=== PATIENT | female | born 1945 | race Caucasian/White ===

== ENCOUNTER → 2017-01-01 | Outpatient (CLI) | payer MEDICARE ==
[2017-01-01 10:05] LABS: Blood Urea Nitrogen 18 mg/dL (7-17); Non-African American GFR(MDRD) >60 (>60 ml/min/1.73 sqM)
--- NOTE | 2017-01-01 10:09 | XR ---
EXAMINATION TYPE: XR skull limited DATE OF EXAM: 01/01/2017 COMPARISON: NONE HISTORY: Pre MRI exam. Prior Brain Surgery. TECHNIQUE: Limited 2 views of the skull are performed. FINDINGS: Craniotomy defect right parietal occipital level is noted. There are [address]es in a snowflake shape and single linear fixating plate identified at site of craniotomy. These ty pically do not prevent MRI but could cause artifact and can be assessed at time of scanning. No intra cranial or intraorbital metallic foreign body is clearly identified. IMPRESSION: As above
--- NOTE | 2017-01-01 16:08 | MR ---
EXAMINATION TYPE: MR iac wo/w con DATE OF EXAM: 01/01/2017 COMPARISON: NONE HISTORY: Hearing loss, tinnitus CONTRAST: Performed utilizing 7.5 mL intravenous Gadavist gadolinium contrast. TECHNIQUE: Multiplanar, multiecho imaging on a 3.0 Jennifer magnet is performed through the brain. Atte ntion is paid to the internal auditory canals with thin section imaging. Postcontrast imaging is per formed through the internal auditory canals. Findings: craniovertebral junction is normal. The pituitary is normal. Diffusion-weighted imaging is performed. No suspicious hyperintensity is present to suggest an acute intracranial infarct or acute ischemic area. There is a prior watershed infarct through the posterior parietal and right occipital region. Next va cuo effect is evident. Thin section imaging is performed through the internal auditory canals and cerebellar pontine angles. No cerebellar pontine angle masses are evident. The internal auditory canals appear normal without expansion or erosion. Postcontrast imaging was performed. No suspicious enhancement is evident within the internal audito ry canals or the included portions of the brain. IMPRESSIONS: 1. Normal internal auditory canals. 2. 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 3. Mild periventricular white matter ischemic type changes
== END | disposition home or self-care (01) ==
LOC: RADMRIMAIN 09:15
PROVIDERS: ATTEND Otolaryngology
DX: I67.82 Cerebral ischemia (principal); H91.90 Unspecified hearing loss, unspecified ear; H93.3X9 Disorders of unspecified acoustic nerve; H93.19 Tinnitus, unspecified ear
CPT/HCPCS: 82565; 84520; 70250; 70553; A9581

== ENCOUNTER → 2017-04-15 | Outpatient (CLI) | payer MEDICARE ==
--- NOTE | 2017-04-15 12:30 | PN ---
PROGRESS NOTE FOLLOW UP NOTE: DATE OF SERVICE: 04/15/2017 A 72-year-old lady who has been followed in the Sleep Center for treatment of obstructive sleep apnea-hypopnea syndrome. Patient successfully continued to use her CPAP equipment every night for the whole night. According to , no snoring with the CPAP. [place] Sleepiness Scale is 1. Patient increased her weight around 6 pounds since previous visit. MEDICATIONS: Hydrochlorothiazide, metoprolol, aspirin, ferrous sulfate, lisinopril, atorvastatin, Aricept, vitamin D supplement. PHYSICAL EXAM: Patient in no distress. BP 160/78, HR 56, RR 16, height 5, 1, weight 176, BMI 33.2, temp 96.8, oxygen saturation at room air 98%. OROPHARYNX: Low position of soft palate. ABDOMEN: Obese. Neck Supple, no JVD. Thyroid is not palpable. LUNGS Clear to percussion and to auscultation. Good air exchange. No wheezing or rhonchi. HEART S1, S2 regular. No murmurs, gallops, or rubs. EXTREMITIES No clubbing or cyanosis. HOLD WORKER Awake, alert, and oriented X3. Cranial nerves 2 to 7 intact. There is no fasciculation or atrophy. noted. No focal deficits observed. IMPRESSION: 1. Obstructive sleep apnea-hypopnea syndrome. Patient demonstrated good compliance with treatment benefitting from treatment. CPAP pressure 7 cm of water. 2. Coronary artery disease, status post coronary artery bypass grafting in 2015. 3. Hypertension. 4. Hyperlipidemia. 5. Status post hysterectomy for ovarian tumor in 1999. 6. Status post brain surgery for removing of tumor in 2002. 7. Hyperlipidemia. PLAN: 1. Prescription for all necessary CPAP supplies. 2. Losing weight. 3. Sleep hygiene with regular time in bed for at least 8 hours. 4. No driving if feeling sleepiness. 5. Followup visit in one year or earlier if patient has any problems. Thank you very much for allowing me to participate in the management of patient. Sincerely, Heber Guzman MD, PhD, FAASM Diplomat of [place] [employer] Marshmallow Machine Worker of [facility] [place] MMODL / IJN: [id number] /
== END | disposition home or self-care (01) ==
LOC: SLEEP 10:59
PROVIDERS: ATTEND Internal Medicine
DX: G47.33 Obstructive sleep apnea (adult) (pediatric) (principal); I25.10 Atherosclerotic heart disease of native coronary artery without angina pectoris; I10 Essential (primary) hypertension; E78.5 Hyperlipidemia, unspecified; Z90.710 Acquired absence of both cervix and uterus; Z95.1 Presence of aortocoronary bypass graft; Z79.82 Long term (current) use of aspirin; Z79.899 Other long term (current) drug therapy; Z85.43 Personal history of malignant neoplasm of ovary; Z85.841 Personal history of malignant neoplasm of brain; Z98.890 Other specified postprocedural states; Z99.89 Dependence on other enabling machines and devices

== ENCOUNTER → 2018-05-06 | Outpatient (CLI) | payer MEDICARE ==
--- NOTE | 2018-05-06 14:58 | SFUN ---
SLEEP CENTER FOLLOW UP NOTE DATE OF SERVICE: 05/06/2018 A 73-year-old lady who has been followed in the Sleep Center for treatment of obstructive sleep apnea-hypopnea syndrome. Patient continued to use her CPAP equipment every night for the whole night without problems related to mask fitting, pressure or humidification. [place] Sleepiness Scale today is 9. I checked her CPAP unit. CPAP pressure is 7 cm of water. Usage is 30/30 nights for more than 4 hours. Average usage is 7.7 hours. Leak 10 L/minutes which is normal range. Apnea-hypopnea index only 1.0, which is absolutely perfect. MEDICATIONS: Lisinopril, baby aspirin, hydrochlorothiazide, metoprolol, potassium supplement, atorvastatin, Aricept, , vitamin D supplement. PHYSICAL EXAM: Patient in no distress. No chest pain. No shortness of breath. No headaches. She is not sure that she took her medications today. Blood pressure 204/72 on the left arm. On the right than 210/102, HR 53, RR 16, height 5 foot 1, weight 182.0, body mass index 34.3. Weight is 6 pounds more than during previous visit 2 years ago, temperature 97.8, oxygen saturation at room air 99%. OROPHARYNX: Low position of soft palate. Neck Supple, no JVD. Thyroid is not palpable. LUNGS Clear to percussion and to auscultation. Good air exchange. No wheezing or rhonchi. HEART S1, S2 regular. No murmurs, gallops, or rubs. ABDOMEN Soft and nontender. Bowel sounds are present. No organomegaly appreciated. EXTREMITIES No clubbing or cyanosis. RUNNER WORKER Awake, alert, and oriented X3. Cranial nerves 2 to 7 intact. There is no fasciculation or atrophy. noted. No focal deficits observed. IMPRESSION: 1. Obstructive sleep apnea-hypopnea syndrome. Patient demonstrated 100% compliance with treatment, benefitting from treatment. 2. Hypertension. 3. Coronary artery disease, status post CABG in 2015. 4. Hyperlipidemia. 5. Status post hysterectomy. 6. Status post brain surgery for removing tumor in 2002. 7. Hyperlipidemia. PLAN: 1. Patient will continue to use her CPAP equipment every night for the whole night. 2. Losing weight. 3. Monitoring of blood pressure. If patient will develop any discomfort in the chest, headache or blood pressure will not improve, she should go to emergency room. 4. No driving if feeling sleepiness. 5. Prescription for all necessary CPAP supplies including mask, tube, filters. Thank you very much for allowing me to participate in management of your patient. Sincerely, Heber Guzman MD, PhD, FAASM Diplomat of [employer] Surfboard Designer of [facility] [place] MMODL / IJN: [id number] /
== END ==
LOC: SLEEP 13:28
PROVIDERS: ATTEND Internal Medicine
DX: G47.33 Obstructive sleep apnea (adult) (pediatric) (principal); I10 Essential (primary) hypertension; I25.10 Atherosclerotic heart disease of native coronary artery without angina pectoris; E78.5 Hyperlipidemia, unspecified; Z98.890 Other specified postprocedural states; Z90.710 Acquired absence of both cervix and uterus; Z99.89 Dependence on other enabling machines and devices; Z95.5 Presence of coronary angioplasty implant and graft; Z79.899 Other long term (current) drug therapy; Z79.82 Long term (current) use of aspirin

== ENCOUNTER 2018-05-17 14:30 | Emergency (ER) | payer MEDICARE ==
[2018-05-17 14:44] VITALS: RESP 16; TEMP 98.4
[2018-05-17] MEDS ORDERED: hydrALAZINE HCL 20 MG/ML 1 ML VIAL IVP STA (15:09)
[2018-05-17] MEDS ORDERED: SODIUM CHLORIDE 0.9% 500 ML 500 ML IV ONE (15:09)
--- NOTE | 2018-05-17 15:11 | ED ---
General Adult HPI - General Chief complaint: Recheck/Abnormal Lab/Rx Stated complaint: Hypertension Time Seen by Provider: 05/17/18 15:00 Source: patient, RN notes reviewed, old records reviewed Mode of arrival: ambulatory Limitations: no limitations - History of Present Illness Initial comments: 73-year-old female presents for evaluation of elevated blood pressure. Blood pressures have been running high over the past several weeks. Patient did attempt to call primary care physician this morning who was not available today , it was recommended that the patient presented emergency department with elevated blood pressure. Patient has remote history of brain cancer status post resection. She has history of dementia. History of hypertension. History of coronary artery disease. She is currently on metoprolol, and lisinopril as well as hydrochlorothiazide. Blood pressures have been trending high specifically over the past 3 weeks but her states that they have been high for many months. Patient is asymptomatic. No headache. No vision changes. No focal numbness or weakness. No chest pain. No abdominal pain. No nausea vomiting. - Related Data Home Medications Medication Instructions Recorded Confirmed Donepezil [Aricept] 10 mg PO HS 05/17/18 05/17/18 Ergocalciferol (Vitamin D2) 50,000 unit PO Q7D 05/17/18 05/17/18 [Vitamin D2] Ezetimibe [Zetia] 10 mg PO HS 05/17/18 05/17/18 Hydrochlorothiazide [Hydrodiuril] 25 mg PO DAILY 05/17/18 05/17/18 Lisinopril 40 mg PO DAILY 05/17/18 05/17/18 Metoprolol Succinate (ER) [Toprol 100 mg PO DAILY 05/17/18 05/17/18 Xl] Potassium Chloride ER [K-Dur 20] 20 meq PO DAILY 05/17/18 05/17/18 Vit C/E/Zn/Coppr/Lutein/Zeaxan 1 cap PO BID 05/17/18 05/17/18 [Preservision Areds 2 Softgel] Previous Rx's Medication Instructions Recorded Aspirin 81 mg PO DAILY chew 08/03/14 Atorvastatin [Lipitor] 80 mg PO HS tab 08/03/14 amLODIPine [Norvasc] 2.5 mg PO DAILY #30 tablet 05/17/18 Allergies Allergy/AdvReac Type Severity Reaction Status Date / Time No Known Allergies Allergy Verified 05/17/18 15:16 Review of Systems ROS Statement: Those systems with pertinent positive or pertinent negative responses have been documented in the HPI. ROS Other: All systems not noted in ROS Statement are negative. Past Medical History Past Medical History: Coronary Artery Disease (CAD), Chest Pain / Angina, Hyperlipidemia, Hypertension, Myocardial Infarction (NC), Skin Disorder, Thyroid Disorder Additional Past Medical History / Comment(s): BORAANITAA Last Myocardial Infarction Date:: 1998 History of Any Multi-Drug Resistant Organisms: None Reported Past Surgical History: Heart Catheterization With Stent, Hysterectomy Additional Past Surgical History / Comment(s): STENT X2 1998, BENIGN BRAIN TUMOR REMOVED 2002, BENIGN OVARIAN TUMOR 1999, RAMY CATARACTS REMOVED 2007 Past Anesthesia/Blood Transfusion Reactions: No Reported Reaction Date of Last Stent Placement:: 1998 Past Psychological History: No Psychological Hx Reported Smoking Status: Never smoker Past Alcohol Use History: None Reported Past Drug Use History: None Reported - Past Family History Mother Family Medical History: Congestive Heart Failure (CHF), Coronary Artery Disease (CAD), Hyperlipidemia Father Family Medical History: Asthma, Coronary Artery Disease (CAD) Brother(s) Family Medical History: Coronary Artery Disease (CAD) Additional Family Medical History / Comment(s): Patient had 2 brothers one from, patient's from smoking and one from coronary artery disease. Patient has no sisters. Patient has 2 sons and one has asthma, one daughter that is healthy. General Exam Limitations: no limitations General appearance: alert, in no apparent distress Head exam: Present: atraumatic, normocephalic Eye exam: Present: normal appearance, PERRL ENT exam: Present: normal exam Neck exam: Present: normal inspection. Absent: tenderness, meningismus Respiratory exam: Present: normal lung sounds bilaterally. Absent: respiratory distress, wheezes Cardiovascular Exam: Present: regular rate, normal rhythm GI/Abdominal exam: Present: soft. Absent: distended, tenderness, guarding Extremities exam: Present: normal inspection, normal capillary refill. Absent: pedal edema Neurological exam: Present: alert, CN II-XII intact. Absent: motor sensory deficit Psychiatric exam: Present: normal affect, normal mood Skin exam: Present: warm, dry, intact. Absent: cyanosis, diaphoretic Course Vital Signs 05/17/18 05/17/18 05/17/18 14:41 15:10 16:06 Temperature 98.4 F Pulse Rate 53 L 76 Pulse Rate [ 44 L Left Sitting Pulse Oximetery ] Respiratory 16 16 Rate Blood Pressure 191/84 158/89 O2 Sat by Pulse 100 98 Oximetry EKG Findings - EKG Comments: EKG Findings:: EKG: Sinus bradycardia, voltage criteria for LVH, rate of 48, FL interval 202, QRS duration 96, QTC 434, there is Q-wave and T-wave inversion in inferior leads consistent with previous EKG, no acute ST segment elevation Medical Decision Making - Medical Decision Making Patient presenting with hypertension. She is currently on lisinopril, metoprolol, and hydrochlorothiazide. Patient herself has no complaints, no headache, no focal numbness or weakness, no chest pain, no abdominal pain. Patient was encouraged by the office of her primary care physician because he was unavailable to see the patient. I did give 10 mg of hydralazine in the emergency department with significant improvement in blood pressure. We'll start this patient on Norvasc 5 mg daily. Her will trend blood pressure daily and keep the leg. They have an appointment with a aircraft pneudraulics repairer in 10 days. They're also presented to the primary care physician for evaluation. Return with any worsening or changing symptoms. - Lab Data Result diagrams: 05/17/18 15:25 05/17/18 15:25 Lab Results 05/17/18 05/17/18 05/17/18 Range/Units 15:25 15:25 15:25 WBC 4.6 (3.8-10.6) k/uL RBC 3.81 (3.80-5.40) m/uL Hgb 11.7 (11.4-16.0) gm/dL Hct 36.0 (34.0-46.0) % MCV 94.5 (80.0-100.0) fL MCH 30.8 (25.0-35.0) pg MCHC 32.6 (31.0-37.0) g/dL RDW 14.0 (11.5-15.5) % Plt Count 233 (150-450) k/uL Neutrophils % 75 % Lymphocytes % 10 % Monocytes % 9 % Eosinophils % 3 % Basophils % 1 % Neutrophils # 3.4 (1.3-7.7) k/uL Lymphocytes # 0.4 L (1.0-4.8) k/uL Monocytes # 0.4 (0-1.0) k/uL Eosinophils # 0.1 (0-0.7) k/uL Basophils # 0.0 (0-0.2) k/uL PT (9.0-12.0) sec INR (<1.2) APTT (22.0-30.0) sec Sodium 139 (137-145) mmol/L Potassium 4.7 (3.5-5.1) mmol/L Chloride 105 (98-107) mmol/L Carbon Dioxide 28 (22-30) mmol/L Anion Gap 6 mmol/L BUN 22 H (7-17) mg/dL Creatinine 0.77 (0.52-1.04) mg/dL Est GFR (CKD-EPI)AfAm 89 (>60 ml/min/1.73 sqM) Est GFR (CKD-EPI)NonAf 77 (>60 ml/min/1.73 sqM) Glucose 108 H (74-99) mg/dL Calcium 10.3 H (8.4-10.2) mg/dL Magnesium 2.0 (1.6-2.3) mg/dL Total Bilirubin 0.7 (0.2-1.3) mg/dL AST 32 (14-36) U/L ALT 44 (9-52) U/L Alkaline Phosphatase 120 (38-126) U/L Total Creatine Kinase 131 (30-135) U/L CK-MB (CK-2) 1.0 (0.0-2.4) ng/mL CK-MB (CK-2) Rel Index 0.8 Troponin I <0.012 (0.000-0.034) ng/mL Total Protein 6.9 (6.3-8.2) g/dL Albumin 4.3 (3.5-5.0) g/dL 05/17/18 Range/Units 15:25 WBC (3.8-10.6) k/uL RBC (3.80-5.40) m/uL Hgb (11.4-16.0) gm/dL Hct (34.0-46.0) % MCV (80.0-100.0) fL MCH (25.0-35.0) pg MCHC (31.0-37.0) g/dL RDW (11.5-15.5) % Plt Count (150-450) k/uL Neutrophils % % Lymphocytes % % Monocytes % % Eosinophils % % Basophils % % Neutrophils # (1.3-7.7) k/uL Lymphocytes # (1.0-4.8) k/uL Monocytes # (0-1.0) k/uL Eosinophils # (0-0.7) k/uL Basophils # (0-0.2) k/uL PT 9.8 (9.0-12.0) sec INR 0.9 (<1.2) APTT 22.5 (22.0-30.0) sec Sodium (137-145) mmol/L Potassium (3.5-5.1) mmol/L Chloride (98-107) mmol/L Carbon Dioxide (22-30) mmol/L Anion Gap mmol/L BUN (7-17) mg/dL Creatinine (0.52-1.04) mg/dL Est GFR (CKD-EPI)AfAm (>60 ml/min/1.73 sqM) Est GFR (CKD-EPI)NonAf (>60 ml/min/1.73 sqM) Glucose (74-99) mg/dL Calcium (8.4-10.2) mg/dL Magnesium (1.6-2.3) mg/dL Total Bilirubin (0.2-1.3) mg/dL AST (14-36) U/L ALT (9-52) U/L Alkaline Phosphatase (38-126) U/L Total Creatine Kinase (30-135) U/L CK-MB (CK-2) (0.0-2.4) ng/mL CK-MB (CK-2) Rel Index Troponin I (0.000-0.034) ng/mL Total Protein (6.3-8.2) g/dL Albumin (3.5-5.0) g/dL Disposition Clinical Impression: Asymptomatic hypertension Disposition: HOME SELF-CARE Condition: Fair Instructions (If sedation given, give patient instructions): Hypertension (ED) Prescriptions: amLODIPine [Norvasc] 2.5 mg PO DAILY #30 tablet Is patient prescribed a controlled substance at d/c from ED?: No Referrals: Neptali Arcos MD [Primary Care Provider] - 1-2 days Saman Tipton MD [STAFF PHYSICIAN] - 1-2 days Time of Disposition: 16:16
[2018-05-17 15:50] LABS: Basophils % (A) 1 %; Eosinophils # (A) 0.1 k/uL (0-0.7); Eosinophils % (A) 3 %; HGB 11.7 gm/dL (11.4-16.0); INR 0.9 (<1.2); Lymphocytes # (A) 0.4 k/uL (1.0-4.8); Lymphocytes % (A) 10 %; MCH 30.8 pg (25.0-35.0); MCHC 32.6 g/dL (31.0-37.0); MCV 94.5 fL (80.0-100.0); Mean Platelet Volume 6.9; Monocytes # (A) 0.4 k/uL (0-1.0); Monocytes % (A) 9 %; Neutrophils # (A) 3.4 k/uL (1.3-7.7); Neutrophils % (A) 75 %; Partial Thromboplastin Time 22.5 sec (22.0-30.0); Platelet Count 233 k/uL (150-450); Prothrombin Time 9.8 sec (9.0-12.0); RBC 3.81 m/uL (3.80-5.40); WBC 4.6 k/uL (3.8-10.6)
[2018-05-17 15:53] LABS: Creatine Kinase 131 U/L (30-135)
[2018-05-17 15:55] LABS: Albumin 4.3 g/dL (3.5-5.0); Calcium 10.3 mg/dL (8.4-10.2); Potassium 4.7 mmol/L (3.5-5.1); Total Bilirubin 0.7 mg/dL (0.2-1.3); Total Protein 6.9 g/dL (6.3-8.2)
[2018-05-17 16:06] LABS: Troponin I <0.012 ng/mL (0.000-0.034)
[2018-05-17 16:08] VITALS: BP 158/89; PULSE 76
== END 2018-05-17 16:28 | disposition home or self-care (01) ==
LOC: EC 14:30
DX: I10 Essential (primary) hypertension (principal); E78.5 Hyperlipidemia, unspecified; I25.119 Atherosclerotic heart disease of native coronary artery with unspecified angina pectoris; F03.90 Unspecified dementia, unspecified severity, without behavioral disturbance, psychotic disturbance, mood disturbance, and anxiety; I25.2 Old myocardial infarction; Z79.899 Other long term (current) drug therapy; Z95.5 Presence of coronary angioplasty implant and graft; Z85.841 Personal history of malignant neoplasm of brain; Z98.890 Other specified postprocedural states; Z82.49 Family history of ischemic heart disease and other diseases of the circulatory system
CPT/HCPCS: 36415; 93005; 80053; 82550; 82553; 83735; 84484; 85025; 85610; 85730; 99284; 96374; 96361; J0360

== ENCOUNTER → 2021-02-28 | Outpatient (CLI) | payer MEDICARE ==
--- NOTE | 2021-02-28 18:32 | SFUN ---
SLEEP CENTER FOLLOW UP NOTE DATE OF SERVICE: 02/28/2021 This 76-year-old lady has been followed in Sleep Center for treatment of obstructive sleep apnea-hypopnea syndrome. The patient continues to use her CPAP equipment every night for the whole night. She likes her nasal mask. [place] Sleepiness Scale today is 3, which is totally normal. I checked her CPAP unit. CPAP pressure is 7 cm of water. Usage is 30/30 nights for more than 4 hours with average usage 7.2 hours per night. Leak is 14 L/minute, which is borderline. Apnea-hypopnea index is only 0.7, which is perfect. MEDICATIONS: 1. Lisinopril 40 mg once a day. 2. Aspirin 81 mg once a day. 3. Hydrochlorothiazide 25 mg once a day. 4. Metoprolol 100 mg once a day. 5. Norvasc 2.5 mg once a day. 6. Ferrous sulfate 325 mg once a day. 7. Omeprazole 20 mg once a day. 8. Atorvastatin 80 mg once a day. 9. Donepezil 10 mg once a day. 10. 10 mg once a day. PHYSICAL EXAMINATION: GENERAL APPEARANCE: Pleasant patient in no distress. VITAL SIGNS: BP 159/83, HR 73, RR 18, height 5 feet 1-3/4 inches, weight 188.4 pounds, temperature 97.0, oxygen saturation at room air 96%. HEENT: PERRLA, EOMI, evaluation of oropharynx showed tongue protrudes midline. Low position of soft palate; Mallampati III. NECK: Supple, no JVD. Thyroid is not palpable. LUNGS: Clear to percussion and to auscultation. Good air exchange. No wheezing or rhonchi. HEART: S1, S2 regular. No murmurs, gallops, or rubs. ABDOMEN: Soft and nontender. Bowel sounds are present. No organomegaly appreciated. EXTREMITIES: No clubbing or cyanosis. ENTRY DRIVER OPERATOR: Awake, alert, and oriented X3. Cranial nerves 2 to 7 intact. There is no fasciculation or atrophy. noted. No focal deficits observed. IMPRESSION: 1. Obstructive sleep apnea-hypopnea syndrome. Patient demonstrated great compliance with treatment, benefitting from treatment. 2. Coronary artery disease, status post CABG in 2014. 3. Hypertension. 4. Hyperlipidemia. 5. Status post total hysterectomy in 1999 for ovarian tumor. 6. Status post brain surgery for tumour in 2002. 7. Hyperlipidemia. 8. Status post bilateral cataract surgery in 2007. PLAN: 1. Replace air filter in CPAP unit immediately. It is in bed shape. 2. Patient will continue to use PAP equipment every night for the whole night. 3. Sleep hygiene with regular time in bed for at least 7-1/2 to 8 hours. 4. Precautions related to driving. No driving if feeling sleepiness. 5. I will maintain all necessary prescription for PAP supplies including mask, tube, filters. 6. Watching weight. 7. Follow-up visit in 6 months or earlier if patient has any problems. Thank you very much for allowing me to participate in the management of your patient. Sincerely, Heber Guzman MD, PhD, FAASM Diplomat of [place] [employer] Sleep Medicine Board of [place] [employer] Director [employer] of [facility] [place] MMODL / LUCIEN: [id number] /
== END | disposition home or self-care (01) ==
LOC: SLEEP 16:43
PROVIDERS: ATTEND Internal Medicine
DX: G47.33 Obstructive sleep apnea (adult) (pediatric) (principal); I25.10 Atherosclerotic heart disease of native coronary artery without angina pectoris; I10 Essential (primary) hypertension; E78.5 Hyperlipidemia, unspecified; Z90.79 Acquired absence of other genital organ(s); Z98.890 Other specified postprocedural states

== ENCOUNTER 2021-08-19 20:24 | Observation (INO) | payer MEDICARE ==
--- NOTE | 2021-08-19 21:49 | XR ---
EXAMINATION TYPE: XR chest 2V DATE OF EXAM: 08/19/2021 COMPARISON: 08/01/2014 HISTORY: Difficulty breathing TECHNIQUE: 2 views FINDINGS: Heart is normal. Lungs are clear of consolidation. There are no hilar masses. There are michael rnal wires. Costophrenic angles are clear. Bony thorax appears intact. IMPRESSION: No active cardiopulmonary disease. There is clearing of the pleural fluid and cardiomegal y compared to old exam.
[2021-08-19 22:44] LABS: Partial Thromboplastin Time 23.8 sec (22.0-30.0); Prothrombin Time 10.5 sec (9.0-12.0)
[2021-08-19 22:45] LABS: Anisocytosis Slight; Basophils % (A) 0 %; Eosinophils # (A) 0.1 k/uL (0-0.7); Eosinophils % (A) 1 %; Hypochromasia Slight; Lymphocytes % (A) 14 %; MCH 29.9 pg (25.0-35.0); MCHC 31.8 g/dL (31.0-37.0); MCV 93.8 fL (80.0-100.0); Monocytes # (A) 0.4 k/uL (0-1.0); Monocytes % (A) 6 %; Neutrophils # (A) 5.3 k/uL (1.3-7.7); Neutrophils % (A) 75 %; Platelet Count 344 k/uL (150-450); RBC 1.96 m/uL (3.80-5.40); RDW 17.6 % (11.5-15.5)
[2021-08-19 22:46] LABS: Calcium 9.1 mg/dL (8.4-10.2); Total Bilirubin 0.4 mg/dL (0.2-1.3); Total Protein 6.6 g/dL (6.3-8.2)
[2021-08-19 22:50] LABS: HCT 18.4 % (34.0-46.0); HGB 5.8 gm/dL (11.4-16.0)
--- NOTE | 2021-08-19 23:27 | ED ---
General Adult HPI - General Chief complaint: Shortness of Breath Stated complaint: Shortness of Breath, Heart History Time Seen by Provider: 08/19/21 22:59 Source: patient, family, RN notes reviewed Mode of arrival: ambulatory Limitations: altered mental status - History of Present Illness Initial comments: Patient is a pleasant 76-year-old female presenting to the emergency department with family with concerns for GI bleed. Patient did have an episode prior to arrival. Patient has history of colitis. Patient has been having some shortness of breath for the past several days. Patient appeared to have some discomfort in her chest earlier today. Patient is a very poor historian and history comes from family. - Related Data Home Medications Medication Instructions Recorded Confirmed Donepezil [Aricept] 10 mg PO HS 05/17/18 05/17/18 Ergocalciferol (Vitamin D2) 50,000 unit PO Q7D 05/17/18 05/17/18 [Vitamin D2] Ezetimibe [Zetia] 10 mg PO HS 05/17/18 05/17/18 Metoprolol Succinate (ER) [Toprol 100 mg PO DAILY 05/17/18 05/17/18 Xl] Potassium Chloride ER [K-Dur 20] 20 meq PO DAILY 05/17/18 05/17/18 Vit C/E/Zn/Coppr/Lutein/Zeaxan 1 cap PO BID 05/17/18 05/17/18 [Preservision Areds 2 Softgel] hydroCHLOROthiazide [Hydrodiuril] 25 mg PO DAILY 05/17/18 05/17/18 lisinopriL 40 mg PO DAILY 05/17/18 05/17/18 Previous Rx's Medication Instructions Recorded Aspirin 81 mg PO DAILY chew 08/03/14 Atorvastatin [Lipitor] 80 mg PO HS tab 08/03/14 amLODIPine [Norvasc] 2.5 mg PO DAILY #30 tablet 05/17/18 Allergies Allergy/AdvReac Type Severity Reaction Status Date / Time No Known Allergies Allergy Verified 08/19/21 23:33 Review of Systems ROS Statement: Those systems with pertinent positive or pertinent negative responses have been documented in the HPI. ROS Other: All systems not noted in ROS Statement are negative. Limitations: ROS unobtainable due to patients medical condition Respiratory: Reports: dyspnea Gastrointestinal: Reports: hematochezia Past Medical History Past Medical History: Coronary Artery Disease (CAD), Chest Pain / Angina, Hyperlipidemia, Hypertension, Myocardial Infarction ([place]), Skin Disorder, Thyroid Disorder Additional Past Medical History / Comment(s): TAMARA Last Myocardial Infarction Date:: 1998 History of Any Multi-Drug Resistant Organisms: None Reported Past Surgical History: Coronary Bypass/CABG, Heart Catheterization With Stent, Hysterectomy Additional Past Surgical History / Comment(s): STENT X2 1998, BENIGN BRAIN TUMOR REMOVED 2002, BENIGN OVARIAN TUMOR 1999, RAMY CATARACTS REMOVED 2007 Past Anesthesia/Blood Transfusion Reactions: No Reported Reaction Date of Last Stent Placement:: 1998 Past Psychological History: No Psychological Hx Reported Smoking Status: Never smoker Past Alcohol Use History: None Reported Past Drug Use History: None Reported - Past Family History Mother Family Medical History: Congestive Heart Failure (CHF), Coronary Artery Disease (CAD), Hyperlipidemia Father Family Medical History: Asthma, Coronary Artery Disease (CAD) Brother(s) Family Medical History: Coronary Artery Disease (CAD) Additional Family Medical History / Comment(s): Patient had 2 brothers one from, patient's from smoking and one from coronary artery disease. Patient has no sisters. Patient has 2 sons and one has asthma, one daughter that is healthy. General Exam Limitations: altered mental status General appearance: alert, in no apparent distress Head exam: Present: normocephalic Eye exam: Present: normal appearance Neck exam: Present: normal inspection Respiratory exam: Present: normal lung sounds bilaterally. Absent: chest wall tenderness Cardiovascular Exam: Present: regular rate, normal rhythm GI/Abdominal exam: Present: soft. Absent: distended, tenderness, guarding, rebound, rigid Extremities exam: Present: normal inspection Neurological exam: Present: alert Psychiatric exam: Present: normal affect, normal mood Skin exam: Present: normal color Course Vital Signs 08/19/21 08/19/21 20:27 23:14 Temperature 99.3 F Pulse Rate 100 78 Respiratory 20 20 Rate Blood Pressure 135/62 140/64 O2 Sat by Pulse 100 100 Oximetry EKG Findings - EKG Comments: EKG Findings:: Sinus rhythm rate 74. DE 185. QRS 95. QT 390. QTC 416. Normal axis. Low QRS voltage. No acute ST change. Medical Decision Making - Medical Decision Making Patient and family made aware of results and plan.. Dr. jeffery has been paged for hospital call. Case was discussed with Dr. jeffery, who will admit. - Lab Data Result diagrams: 08/19/21 22:14 08/19/21 22:14 Lab Results 08/19/21 08/19/21 08/19/21 Range/Units 22:14 22:14 22:14 WBC 7.0 (3.8-10.6) k/uL RBC 1.96 L (3.80-5.40) m/uL Hgb 5.8 L* (11.4-16.0) gm/dL Hct 18.4 L* (34.0-46.0) % MCV 93.8 (80.0-100.0) fL MCH 29.9 (25.0-35.0) pg MCHC 31.8 (31.0-37.0) g/dL RDW 17.6 H (11.5-15.5) % Plt Count 344 (150-450) k/uL MPV 8.0 Hypochromasia Slight Anisocytosis Slight PT 10.5 (9.0-12.0) sec INR 1.0 (<1.2) APTT 23.8 (22.0-30.0) sec D-Dimer 0.31 (<0.60) mg/L FEU Sodium 137 (137-145) mmol/L Potassium 5.0 (3.5-5.1) mmol/L Chloride 107 (98-107) mmol/L Carbon Dioxide 18 L (22-30) mmol/L Anion Gap 12 mmol/L BUN 22 H (7-17) mg/dL Creatinine 0.98 (0.52-1.04) mg/dL Est GFR (CKD-EPI)AfAm 65 (>60 ml/min/1.73 sqM) Est GFR (CKD-EPI)NonAf 57 (>60 ml/min/1.73 sqM) Glucose 236 H (74-99) mg/dL Calcium 9.1 (8.4-10.2) mg/dL Total Bilirubin 0.4 (0.2-1.3) mg/dL AST 39 H (14-36) U/L ALT 25 (4-34) U/L Alkaline Phosphatase 122 (38-126) U/L Troponin I (0.000-0.034) ng/mL Total Protein 6.6 (6.3-8.2) g/dL Albumin 4.0 (3.5-5.0) g/dL 08/19/21 Range/Units 22:14 WBC (3.8-10.6) k/uL RBC (3.80-5.40) m/uL Hgb (11.4-16.0) gm/dL Hct (34.0-46.0) % MCV (80.0-100.0) fL MCH (25.0-35.0) pg MCHC (31.0-37.0) g/dL RDW (11.5-15.5) % Plt Count (150-450) k/uL MPV Hypochromasia Anisocytosis PT (9.0-12.0) sec INR (<1.2) APTT (22.0-30.0) sec D-Dimer (<0.60) mg/L FEU Sodium (137-145) mmol/L Potassium (3.5-5.1) mmol/L Chloride (98-107) mmol/L Carbon Dioxide (22-30) mmol/L Anion Gap mmol/L BUN (7-17) mg/dL Creatinine (0.52-1.04) mg/dL Est GFR (CKD-EPI)AfAm (>60 ml/min/1.73 sqM) Est GFR (CKD-EPI)NonAf (>60 ml/min/1.73 sqM) Glucose (74-99) mg/dL Calcium (8.4-10.2) mg/dL Total Bilirubin (0.2-1.3) mg/dL AST (14-36) U/L ALT (4-34) U/L Alkaline Phosphatase (38-126) U/L Troponin I <0.012 (0.000-0.034) ng/mL Total Protein (6.3-8.2) g/dL Albumin (3.5-5.0) g/dL Disposition Clinical Impression: Lower GI hemorrhage Disposition: ADMITTED IP TO THIS HOSP Condition: Serious Is patient prescribed a controlled substance at d/c from ED?: No Referrals: Alisson Calzada [Primary Care Provider] - 1-2 days Time of Disposition: 23:29
[2021-08-19] MEDS ORDERED: PANTOPRAZOLE 40 MG/10 ML VIAL IVP STA (23:29)
[2021-08-19] MEDS ORDERED: NALOXONE 0.4 MG/ML 1 ML VIAL IV PRN (23:31)
[2021-08-19 23:53] LABS: Ovalocytes Present; Poikilocytosis (M) Present; Polychromasia Present
--- NOTE | 2021-08-20 05:04 | P.HPIM ---
History of Present Illness H&P Date: 08/20/21 The patient is a 76-year-old female with a PMH of hypertension, diabetes, hyperlipidemia, and dementia presented to the emergency room with complaints of shortness of breath. History was obtained from the via telephone. The patient is a very poor historian due to underlying dementia. reports that they were out for dinner when he noticed that the patient appeared to be more short of breath than usual. They subsequently brought her to the emergency room. The also reports that over the past 24 hours, the patient has had some bright red blood in her stools, which is unusual for her. The patient herself however denied any active complaints at the time of interview, although he is an unreliable historian due to her significant dementia. Chest x-ray in the emergency room was unremarkable with EKG showing sinus rhythm at 74 bpm with T-wave inversion in leads V1 to V3. Laboratory evaluation was remarkable for hemoglobin of 5.8 down from 11.7 in 2019. Troponin was less than 0.012, with glucose 236. Review of systems: Unable to assess due to mental status Physical examination: General: non toxic, no distress, appears at stated age, obese Derm: no unusual rashes/lesions no unusual ecchymoses, warm, dry Head: atraumatic, normocephalic, symmetric Eyes: EOMI, no lid lag, anicteric sclera, pupils equal round reactive to light ENT: Nose and ears atraumatic, no thrush, no pharyngeal erythema Neck: No thyromegaly, no cervical lymphadenopathy, trachea midline, supple Mouth: no lip lesion, mucus membranes moist Cardiovascular: S1S2 reg, no murmur, positive posterior tibial pulse bilateral, no edema, capillary refill less than 2 seconds Lungs: CTA bilateral, no rhonchi, no rales , no accessory muscle use Abdominal: soft, nontender to palpation, no guarding, no appreciable organomegaly, normal bowel sounds Ext: no gross muscle atrophy, muscle strength 5 out of 5 in all 4 extremities grossly, no contractures, Neuro: CN II-XI grossly intact, light touch intact all 4 extremities, finger to nose within normal limits, Psych: Alert, oriented only to self, not oriented to place or time Assessment/plan Acute blood loss anemia secondary to GI bleeding -1 unit PRBCs ordered -Surgery consulted for colonoscopy/endoscopy -IV fluids -Continue with IV Protonix -Monitor CBC -Nothing by mouth for now Chronic conditions: Type II DM, hypertension, hyperlipidemia, dementia -Continue with home meds -Insulin sliding scale and blood glucose monitoring -Check A1c DVT prophylaxis -IPCDs The patient is admitted with an anticipated greater than 2 midnight stay for evaluation of acute blood loss anemia CODE STATUS: Full Code Discussed with: Patient Anticipated discharge date: 2-[address]: Home Past Medical History Past Medical History: Coronary Artery Disease (CAD), Chest Pain / Angina, Hyperlipidemia, Hypertension, Myocardial Infarction ([place]), Skin Disorder, Thyroid Disorder Additional Past Medical History / Comment(s): BORAMARI Last Myocardial Infarction Date:: 1998 History of Any Multi-Drug Resistant Organisms: None Reported Past Surgical History: Coronary Bypass/CABG, Heart Catheterization With Stent, Hysterectomy Additional Past Surgical History / Comment(s): STENT X2 1998, BENIGN BRAIN TUMOR REMOVED 2002, BENIGN OVARIAN TUMOR 1999, RAMY CATARACTS REMOVED 2007 Past Anesthesia/Blood Transfusion Reactions: No Reported Reaction Date of Last Stent Placement:: 1998 Past Psychological History: No Psychological Hx Reported Smoking Status: Never smoker Past Alcohol Use History: None Reported Past Drug Use History: None Reported - Past Family History Mother Family Medical History: Congestive Heart Failure (CHF), Coronary Artery Disease (CAD), Hyperlipidemia Father Family Medical History: Asthma, Coronary Artery Disease (CAD) Brother(s) Family Medical History: Coronary Artery Disease (CAD) Additional Family Medical History / Comment(s): Patient had 2 brothers one from, patient's from smoking and one from coronary artery disease. Patient has no sisters. Patient has 2 sons and one has asthma, one daughter that is healthy. Medications and Allergies Home Medications Medication Instructions Recorded Confirmed Type Aspirin 81 mg PO DAILY chew 08/03/14 08/19/21 Rx Atorvastatin [Lipitor] 80 mg PO HS tab 08/03/14 08/19/21 Rx Donepezil [Aricept] 10 mg PO HS 05/17/18 08/19/21 History Ergocalciferol (Vitamin D2) 50,000 unit PO WE 05/17/18 08/19/21 History [Vitamin D2] Ezetimibe [Zetia] 10 mg PO HS 05/17/18 08/19/21 History Metoprolol Succinate (ER) [Toprol 100 mg PO DAILY 05/17/18 08/19/21 History Xl] Potassium Chloride ER [K-Dur 20] 20 meq PO DAILY 05/17/18 08/19/21 History Vit C/E/Zn/Coppr/Lutein/Zeaxan 1 cap PO BID 05/17/18 08/19/21 History [Preservision Areds 2 Softgel] hydroCHLOROthiazide [Hydrodiuril] 25 mg PO DAILY 05/17/18 08/19/21 History lisinopriL 40 mg PO DAILY 05/17/18 08/19/21 History Ferrous Sulfate [Feosol] 325 mg PO BID 08/19/21 08/19/21 History Omeprazole [PriLOSEC] 20 mg PO DAILY 08/19/21 08/19/21 History amLODIPine [Norvasc] 5 mg PO DAILY 08/19/21 08/19/21 History metFORMIN HCL 500 mg PO BID 08/19/21 08/19/21 History Allergies Allergy/AdvReac Type Severity Reaction Status Date / Time No Known Allergies Allergy Verified 08/19/21 23:33 Physical Exam Vitals: Vital Signs Temp Pulse Resp BP Pulse Ox 08/20/21 03:11 98.1 F 73 16 127/57 97 08/20/21 02:12 99.0 F 66 16 132/61 94 L 08/20/21 01:42 98.2 F 72 18 117/59 99 08/20/21 01:32 99.2 F 70 16 115/59 100 08/19/21 23:14 78 20 140/64 100 08/19/21 20:27 99.3 F 100 20 135/62 100 Intake and Output 08/19/21 08/19/21 08/20/21 14:59 22:59 06:59 Intake Total 310 Balance 310 Intake: Blood Product 310 Rc As-1 Unit 310 [id number] Other: Weight 83.007 kg Results CBC & Chem 7: 08/19/21 22:14 08/19/21 22:14 Labs: Abnormal Lab Results - Last 24 Hours (Table) 08/19/21 08/19/21 08/19/21 Range/Units 22:14 22:14 23:25 RBC 1.96 L (3.80-5.40) m/uL Hgb 5.8 L* (11.4-16.0) gm/dL Hct 18.4 L* (34.0-46.0) % RDW 17.6 H (11.5-15.5) % Carbon Dioxide 18 L (22-30) mmol/L BUN 22 H (7-17) mg/dL Glucose 236 H (74-99) mg/dL AST 39 H (14-36) U/L Crossmatch See Detail
[2021-08-20 07:33] LABS: Glucose,Whole Blood 167 mg/dL (75-99)
[2021-08-20] MEDS: INSULIN ASPART (NovoLOG) 100 UNIT/ML VIAL SQ SCH ×4 (07:46→21:45)
[2021-08-20 08:52] LABS: Anisocytosis Slight; Basophils % (A) 0 %; Eosinophils # (A) 0.1 k/uL (0-0.7); Eosinophils % (A) 2 %; Hypochromasia Slight; Lymphocytes # (A) 0.9 k/uL (1.0-4.8); Lymphocytes % (A) 16 %; MCH 30.1 pg (25.0-35.0); MCHC 32.1 g/dL (31.0-37.0); MCV 93.8 fL (80.0-100.0); Mean Platelet Volume 7.7; Monocytes # (A) 0.4 k/uL (0-1.0); Monocytes % (A) 6 %; Neutrophils % (A) 72 %; Platelet Count 269 k/uL (150-450); RBC 2.23 m/uL (3.80-5.40); RDW 17.4 % (11.5-15.5); WBC 5.5 k/uL (3.8-10.6)
[2021-08-20 08:55] LABS: HGB 6.7 gm/dL (11.4-16.0)
[2021-08-20 09:07] LABS: Calcium 8.8 mg/dL (8.4-10.2); Potassium 5.2 mmol/L (3.5-5.1)
[2021-08-20] MEDS: METOPROLOL SUCCINATE (ER) 100 MG TAB.ER.24H PO SCH (09:22)
[2021-08-20] MEDS: lisinopriL 20 MG TAB PO SCH (09:22)
[2021-08-20] MEDS: hydroCHLOROthiazide 25 MG TAB PO SCH (09:22)
[2021-08-20] MEDS: PANTOPRAZOLE 40 MG/10 ML VIAL IVP SCH (09:22)
[2021-08-20] MEDS: amLODIPine 5 MG TAB PO SCH (09:22)
--- NOTE | 2021-08-20 11:15 | P.GSCN ---
History of Present Illness Consult date: 08/20/21 History of present illness: CHIEF COMPLAINT: GI bleed HISTORY OF PRESENT ILLNESS: This is a 76-year-old female with a known history of dementia. She presented to the emergency room with complaints of shortness of breath and bright red blood per rectum per the chart. Patient is a poor historian. She was found to have a hemoglobin of 5.8. She has received 1 unit of blood. She also has a history of colitis. Patient denies abdominal pain. Denies any nausea or vomiting. Patient does take iron at home. PAST MEDICAL HISTORY: Coronary Artery Disease (CAD), Chest Pain / Angina, Hyperlipidemia, Hypertension, Myocardial Infarction ([place]), Skin Disorder, Thyroid Disorder PAST SURGICAL HISTORY: Coronary Bypass/CABG, Heart Catheterization With Stent, Hysterectomy, BENIGN BRAIN TUMOR REMOVED 2002, BENIGN OVARIAN TUMOR 1999, RAMY CATARACTS REMOVED 2007 MEDICATIONS: See list. ALLERGIES: See list. SOCIAL HISTORY: No illicit drug use. REVIEW OF SYSTEMS: CONSTITUTIONAL: Denies fever or chills. HEENT: Denies blurred vision, vision changes, or eye pain. Denies hemoptysis CARDIOVASCULAR: Denies chest pain or pressure. RESPIRATORY: No shortness of breath. GASTROINTESTINAL: See HPI for pertinent findings HEMATOLOGIC: Denies bleeding disorders. GENITOURINARY: Denies any blood in urine or increased urinary frequency. SKIN: Denies pruitis. Denies rash. PHYSICAL EXAM: VITAL SIGNS: Reviewed GENERAL: Well-developed in no acute distress. HEENT: No sclera icterus. Extraocular movements grossly intact. Moist buccal mucosa. Head is atraumatic, normocephalic. No nasal drainage. ABDOMEN: Soft. Nondistended. Nontender NEUROLOGIC: Awake and alert. Possibly confused. LABORATORY DATA: WBC is 5.5 hemoglobin 5.8 up to 6.7 platelets 269 Sodium 139 potassium 5.2 creatinine 0.93 IMAGING: ASSESSMENT: 1. Acute GI bleed 2. Acute blood loss anemia secondary to GI bleeding PLAN: -Patient is scheduled for EGD and colonoscopy on 08/22/[address] simms -Start clear liquids -Start GoLYTELY prep tomorrow morning -Continue supportive care -Continue IV fluids -Agree with blood transfusion. Patient receiving another unit of blood -Continue PPI -Continue monitor hemoglobin -Continue to monitor for any signs or symptoms of bleeding Thank you for this consultation Physician Drafter note has been reviewed by physician. Signing provider agrees with the documented findings, assessment, and plan of care. Past Medical History Past Medical History: Coronary Artery Disease (CAD), Chest Pain / Angina, Hyperlipidemia, Hypertension, Myocardial Infarction ([place]), Skin Disorder, Thyroid Disorder Additional Past Medical History / Comment(s): TAMARA Last Myocardial Infarction Date:: 1998 History of Any Multi-Drug Resistant Organisms: None Reported Past Surgical History: Coronary Bypass/CABG, Heart Catheterization With Stent, Hysterectomy Additional Past Surgical History / Comment(s): STENT X2 1998, BENIGN BRAIN TUMOR REMOVED 2002, BENIGN OVARIAN TUMOR 1999, RAMY CATARACTS REMOVED 2007 Past Anesthesia/Blood Transfusion Reactions: No Reported Reaction Date of Last Stent Placement:: 1998 Past Psychological History: No Psychological Hx Reported Smoking Status: Never smoker Past Alcohol Use History: None Reported Past Drug Use History: None Reported - Past Family History Mother Family Medical History: Congestive Heart Failure (CHF), Coronary Artery Disease (CAD), Hyperlipidemia Father Family Medical History: Asthma, Coronary Artery Disease (CAD) Brother(s) Family Medical History: Coronary Artery Disease (CAD) Additional Family Medical History / Comment(s): Patient had 2 brothers one from, patient's from smoking and one from coronary artery disease. Patient has no sisters. Patient has 2 sons and one has asthma, one daughter that is healthy. Medications and Allergies Home Medications Medication Instructions Recorded Confirmed Type Aspirin 81 mg PO DAILY chew 08/03/14 08/19/21 Rx Atorvastatin [Lipitor] 80 mg PO HS tab 08/03/14 08/19/21 Rx Donepezil [Aricept] 10 mg PO HS 05/17/18 08/19/21 History Ergocalciferol (Vitamin D2) 50,000 unit PO WE 05/17/18 08/19/21 History [Vitamin D2] Ezetimibe [Zetia] 10 mg PO HS 05/17/18 08/19/21 History Metoprolol Succinate (ER) [Toprol 100 mg PO DAILY 05/17/18 08/19/21 History Xl] Potassium Chloride ER [K-Dur 20] 20 meq PO DAILY 05/17/18 08/19/21 History Vit C/E/Zn/Coppr/Lutein/Zeaxan 1 cap PO BID 05/17/18 08/19/21 History [Preservision Areds 2 Softgel] hydroCHLOROthiazide [Hydrodiuril] 25 mg PO DAILY 05/17/18 08/19/21 History lisinopriL 40 mg PO DAILY 05/17/18 08/19/21 History Ferrous Sulfate [Feosol] 325 mg PO BID 08/19/21 08/19/21 History Omeprazole [PriLOSEC] 20 mg PO DAILY 08/19/21 08/19/21 History amLODIPine [Norvasc] 5 mg PO DAILY 08/19/21 08/19/21 History metFORMIN HCL 500 mg PO BID 08/19/21 08/19/21 History Allergies Allergy/AdvReac Type Severity Reaction Status Date / Time No Known Allergies Allergy Verified 08/19/21 23:33 Surgical - Exam Vital Signs Temp Pulse Resp BP Pulse Ox 99.3 F 100 20 135/62 100 08/19/21 20:27 08/19/21 20:27 08/19/21 20:27 08/19/21 20:27 08/19/21 20:27 Results - Labs 08/20/21 07:15 08/20/21 07:15 Abnormal Lab Results - Last 24 Hours (Table) 08/19/21 08/19/21 08/19/21 Range/Units 22:14 22:14 23:25 RBC 1.96 L (3.80-5.40) m/uL Hgb 5.8 L* (11.4-16.0) gm/dL Hct 18.4 L* (34.0-46.0) % RDW 17.6 H (11.5-15.5) % Lymphocytes # (1.0-4.8) k/uL Potassium (3.5-5.1) mmol/L Chloride (98-107) mmol/L Carbon Dioxide 18 L (22-30) mmol/L BUN 22 H (7-17) mg/dL Glucose 236 H (74-99) mg/dL POC Glucose (mg/dL) (75-99) mg/dL AST 39 H (14-36) U/L Crossmatch See Detail 08/20/21 08/20/21 08/20/21 Range/Units 07:15 07:15 07:31 RBC 2.23 L (3.80-5.40) m/uL Hgb 6.7 L* (11.4-16.0) gm/dL Hct 21.0 L (34.0-46.0) % RDW 17.4 H (11.5-15.5) % Lymphocytes # 0.9 L (1.0-4.8) k/uL Potassium 5.2 H (3.5-5.1) mmol/L Chloride 108 H (98-107) mmol/L Carbon Dioxide (22-30) mmol/L BUN 19 H (7-17) mg/dL Glucose 143 H (74-99) mg/dL POC Glucose (mg/dL) 167 H (75-99) mg/dL AST (14-36) U/L Crossmatch Diabetes panel 08/19/21 08/20/21 Range/Units 22:14 07:15 Sodium 137 139 (137-145) mmol/L Potassium 5.0 5.2 H (3.5-5.1) mmol/L Chloride 107 108 H (98-107) mmol/L Carbon Dioxide 18 L 22 (22-30) mmol/L BUN 22 H 19 H (7-17) mg/dL Creatinine 0.98 0.93 (0.52-1.04) mg/dL Glucose 236 H 143 H (74-99) mg/dL Calcium 9.1 8.8 (8.4-10.2) mg/dL AST 39 H (14-36) U/L ALT 25 (4-34) U/L Alkaline Phosphatase 122 (38-126) U/L Total Protein 6.6 (6.3-8.2) g/dL Albumin 4.0 (3.5-5.0) g/dL Calcium panel 08/19/21 08/20/21 Range/Units 22:14 07:15 Calcium 9.1 8.8 (8.4-10.2) mg/dL Albumin 4.0 (3.5-5.0) g/dL Pituitary panel 08/19/21 08/20/21 Range/Units 22:14 07:15 Sodium 137 139 (137-145) mmol/L Potassium 5.0 5.2 H (3.5-5.1) mmol/L Chloride 107 108 H (98-107) mmol/L Carbon Dioxide 18 L 22 (22-30) mmol/L BUN 22 H 19 H (7-17) mg/dL Creatinine 0.98 0.93 (0.52-1.04) mg/dL Glucose 236 H 143 H (74-99) mg/dL Calcium 9.1 8.8 (8.4-10.2) mg/dL Adrenal panel 08/19/21 08/20/21 Range/Units 22:14 07:15 Sodium 137 139 (137-145) mmol/L Potassium 5.0 5.2 H (3.5-5.1) mmol/L Chloride 107 108 H (98-107) mmol/L Carbon Dioxide 18 L 22 (22-30) mmol/L BUN 22 H 19 H (7-17) mg/dL Creatinine 0.98 0.93 (0.52-1.04) mg/dL Glucose 236 H 143 H (74-99) mg/dL Calcium 9.1 8.8 (8.4-10.2) mg/dL Total Bilirubin 0.4 (0.2-1.3) mg/dL AST 39 H (14-36) U/L ALT 25 (4-34) U/L Alkaline Phosphatase 122 (38-126) U/L Total Protein 6.6 (6.3-8.2) g/dL Albumin 4.0 (3.5-5.0) g/dL
--- NOTE | 2021-08-20 12:56 | P.PN ---
Subjective Progress Note Date: 08/20/21 Objective - Vital Signs Vital signs: Vital Signs Temp 98 F 08/20/21 12:52 Pulse 61 08/20/21 12:52 Resp 16 08/20/21 12:52 BP 118/64 08/20/21 12:52 Pulse Ox 97 08/20/21 12:52 Intake & Output 08/19/21 08/20/21 08/20/21 18:59 06:59 18:59 Intake Total 310 310 Balance 310 310 Weight 83.007 kg Intake: Blood Product 310 310 Rc As-1 Unit 310 [id number] Rc As-1 Unit 310 [id number] - Labs CBC & Chem 7: 08/20/21 07:15 08/20/21 07:15 Labs: Abnormal Lab Results - Last 24 Hours (Table) 08/19/21 08/19/21 08/19/21 Range/Units 22:14 22:14 23:25 RBC 1.96 L (3.80-5.40) m/uL Hgb 5.8 L* (11.4-16.0) gm/dL Hct 18.4 L* (34.0-46.0) % RDW 17.6 H (11.5-15.5) % Lymphocytes # (1.0-4.8) k/uL Potassium (3.5-5.1) mmol/L Chloride (98-107) mmol/L Carbon Dioxide 18 L (22-30) mmol/L BUN 22 H (7-17) mg/dL Glucose 236 H (74-99) mg/dL POC Glucose (mg/dL) (75-99) mg/dL Hemoglobin A1c (0.0-6.0) % AST 39 H (14-36) U/L Crossmatch See Detail 08/20/21 08/20/21 08/20/21 Range/Units 07:15 07:15 07:15 RBC 2.23 L (3.80-5.40) m/uL Hgb 6.7 L* (11.4-16.0) gm/dL Hct 21.0 L (34.0-46.0) % RDW 17.4 H (11.5-15.5) % Lymphocytes # 0.9 L (1.0-4.8) k/uL Potassium 5.2 H (3.5-5.1) mmol/L Chloride 108 H (98-107) mmol/L Carbon Dioxide (22-30) mmol/L BUN 19 H (7-17) mg/dL Glucose 143 H (74-99) mg/dL POC Glucose (mg/dL) (75-99) mg/dL Hemoglobin A1c 7.2 H (0.0-6.0) % AST (14-36) U/L Crossmatch 08/20/21 Range/Units 07:31 RBC (3.80-5.40) m/uL Hgb (11.4-16.0) gm/dL Hct (34.0-46.0) % RDW (11.5-15.5) % Lymphocytes # (1.0-4.8) k/uL Potassium (3.5-5.1) mmol/L Chloride (98-107) mmol/L Carbon Dioxide (22-30) mmol/L BUN (7-17) mg/dL Glucose (74-99) mg/dL POC Glucose (mg/dL) 167 H (75-99) mg/dL Hemoglobin A1c (0.0-6.0) % AST (14-36) U/L Crossmatch
--- NOTE | 2021-08-20 13:31 | P.PN ---
Subjective Progress Note Date: 08/20/21 The patient is a 76-year-old female with a PMH of hypertension, diabetes, hyperlipidemia, and dementia presented to the emergency room with complaints of shortness of breath. History was obtained from the via telephone. The patient is a very poor historian due to underlying dementia. reports that they were out for dinner when he noticed that the patient appeared to be more short of breath than usual. They subsequently brought her to the emergency room. The also reports that over the past 24 hours, the patient has had some bright red blood in her stools, which is unusual for her. The patient herself however denied any active complaints at the time of interview, although he is an unreliable historian due to her significant dementia. Chest x-ray in the emergency room was unremarkable with EKG showing sinus rhythm at 74 bpm with T-wave inversion in leads V1 to V3. Laboratory evaluation was remarkable for hemoglobin of 5.8 down from 11.7 in 2019. Troponin was less than 0.012, with glucose 236. 08/20: Patient is seen this morning in the emergency center waiting from bed on the [facility] floor. Her nurse states that she has not had any bloody stools today but did have some yesterday. She is status post transfusion 1 unit of packed RBC and repeat blood work is pending. Patient denies having any nausea or vomiting. Patient's been afebrile, heart rate in the 60s, blood pressure 118/64, pulse ox 97% on room air. Capillary blood glucose 167. Patient to be seen today by general surgery and anticipate EGD and possible colonoscopy. Review Of Systems: Constitutional: No fever, no chills, no night sweats. No weight change. No weakness, fatigue or lethargy. No daytime sleepiness. EENT: No headache. No blurred vision or double vision, no loss of vision. No loss of Hearing, no ringing in the ears, no dizziness. No nasal drainage or congestion. No epistaxis. No sore throat. Lungs: No shortness of breath, cough, no sputum production. No wheezing. Cardiovascular: No chest pain, no lower extremity edema. No palpitations. No paroxysmal nocturnal dyspnea. No orthopnea. No lightheadedness or dizziness. No syncopal episodes. Abdominal: No abdominal pain. No nausea, vomiting. No diarrhea. No constipation. Reported bloody or tarry stools reported loss of appetite. Genitourinary: No dysuria, increased frequency, urgency. No urinary retention. Musculoskeletal: No myalgias. No muscle weakness, no gait dysfunction, no frequent falls. No back pain. No neck pain. Integumentary: No wounds, no lesions. No rash or pruritus. No unusual bruising. No change in hair or nails. Neurologic: No aphasia. No facial droop. Chronic change in mentation due to underlying dementia. No head injury. No headache. No paralysis. No paresthesia. Psychiatric: No depression. No anxiety. No mood swings. Endocrine: No abnormal blood sugars. No weight change. No excessive sweating or thirst. No cold intolerance. Physical examination: General: This is a 76-year-old female. She is sitting on the ER stretch and appears to be comfortable in no acute distress. Derm: no unusual rashes/lesions no unusual ecchymoses, warm, dry Head: atraumatic, normocephalic, symmetric Eyes: EOMI, no lid lag, anicteric sclera, pupils equal round reactive to light ENT: Nose and ears atraumatic, no thrush, no pharyngeal erythema Neck: No thyromegaly, no cervical lymphadenopathy, trachea midline, supple Mouth: no lip lesion, mucus membranes moist Cardiovascular: S1S2 reg, no murmur, positive posterior tibial pulse bilateral, no edema, capillary refill less than 2 seconds Lungs: CTA bilateral, no rhonchi, no rales , no accessory muscle use Abdominal: soft, nontender to palpation, no guarding, no appreciable organomegaly, normal bowel sounds Ext: no gross muscle atrophy, muscle strength 5 out of 5 in all 4 extremities grossly, no contractures Neuro: CN II-XI grossly intact, light touch intact all 4 extremities Psych: Alert, oriented only to self, not oriented to place or time Assessment/plan Acute blood loss anemia secondary to acute GI bleeding - status post transfusion of 1 unit of packed RBCs -Surgery consulted for colonoscopy/endoscopy -IV fluids -Continue with IV Protonix -Monitor CBC -Nothing by mouth for now Hypertension. Continue lisinopril 40 mg daily, Toprol-XL 100 mg daily, amlodipine 5 mg daily. Hyperlipidemia. Continue atorvastatin 80 mg at bedtime. Diabetes mellitus type 2. Continue NovoLog scale before meals and at bedtime. A1c 7.2. DVT prophylaxis -IPCDs CODE STATUS: Full Code DISCHARGE PLAN Home most likely Impression and plan of care have been directed as dictated by the signing physician. Desi Holden nurse practitioner acting as scribe for signing physician. Objective - Vital Signs Vital signs: Vital Signs Temp 98.1 F 08/20/21 03:11 Pulse 64 08/20/21 05:59 Resp 18 08/20/21 05:59 BP 128/82 08/20/21 05:59 Pulse Ox 98 08/20/21 05:59 Intake & Output 08/19/21 08/20/21 08/20/21 18:59 06:59 18:59 Intake Total 310 Balance 310 Weight 83.007 kg Intake: Blood Product 310 Rc As-1 Unit 310 [id number] - Labs CBC & Chem 7: 08/20/21 07:15 08/20/21 07:15 Labs: Abnormal Lab Results - Last 24 Hours (Table) 08/19/21 08/19/21 08/19/21 Range/Units 22:14 22:14 23:25 RBC 1.96 L (3.80-5.40) m/uL Hgb 5.8 L* (11.4-16.0) gm/dL Hct 18.4 L* (34.0-46.0) % RDW 17.6 H (11.5-15.5) % Carbon Dioxide 18 L (22-30) mmol/L BUN 22 H (7-17) mg/dL Glucose 236 H (74-99) mg/dL POC Glucose (mg/dL) (75-99) mg/dL AST 39 H (14-36) U/L Crossmatch See Detail 08/20/21 Range/Units 07:31 RBC (3.80-5.40) m/uL Hgb (11.4-16.0) gm/dL Hct (34.0-46.0) % RDW (11.5-15.5) % Carbon Dioxide (22-30) mmol/L BUN (7-17) mg/dL Glucose (74-99) mg/dL POC Glucose (mg/dL) 167 H (75-99) mg/dL AST (14-36) U/L Crossmatch
[2021-08-20 14:06] LABS: Glucose,Whole Blood 137 mg/dL (75-99)
[2021-08-20] MEDS: SODIUM CHLORIDE 0.9% 1,000 ML IV SCH ×2 (14:47→14:48)
[2021-08-20 16:30] LABS: Anisocytosis Slight; HCT 24.3 % (34.0-46.0); HGB 7.9 gm/dL (11.4-16.0); Hypochromasia Slight; MCH 30.9 pg (25.0-35.0); MCHC 32.6 g/dL (31.0-37.0); MCV 94.8 fL (80.0-100.0); Platelet Count 208 k/uL (150-450); RBC 2.57 m/uL (3.80-5.40); RDW 16.5 % (11.5-15.5); WBC 5.6 k/uL (3.8-10.6)
[2021-08-20 18:31] LABS: Glucose,Whole Blood 192 mg/dL (75-99)
[2021-08-20 20:51] LABS: Glucose,Whole Blood 176 mg/dL (75-99)
[2021-08-20] MEDS: DONEPEZIL 10 MG TAB PO SCH (21:45)
[2021-08-20] MEDS: ATORVASTATIN 80 MG TAB PO SCH (21:45)
[2021-08-21] MEDS: SODIUM CHLORIDE 0.9% 1,000 ML IV SCH ×3 (01:30→22:50)
[2021-08-21] MEDS: INSULIN ASPART (NovoLOG) 100 UNIT/ML VIAL SQ SCH ×4 (06:20→20:41)
[2021-08-21 06:21] LABS: Glucose,Whole Blood 134 mg/dL (75-99)
[2021-08-21 07:53] LABS: Anisocytosis Slight; HGB 8.9 gm/dL (11.4-16.0); Hypochromasia Slight; MCH 31.5 pg (25.0-35.0); MCHC 33.1 g/dL (31.0-37.0); MCV 95.3 fL (80.0-100.0); Mean Platelet Volume 8.4; Platelet Count 243 k/uL (150-450); Poikilocytosis Slight; RBC 2.83 m/uL (3.80-5.40); RDW 16.8 % (11.5-15.5); WBC 5.8 k/uL (3.8-10.6)
[2021-08-21 08:11] LABS: African American GFR (CKD) >90 (>60 ml/min/1.73 sqM); Anion Gap 8 mmol/L; Blood Urea Nitrogen 10 mg/dL (7-17); Calcium 9.2 mg/dL (8.4-10.2); Carbon Dioxide 24 mmol/L (22-30); Chloride 108 mmol/L (98-107); Glucose 143 mg/dL (74-99); Non-African American GFR(CKD) 80 (>60 ml/min/1.73 sqM); Potassium 4.3 mmol/L (3.5-5.1); Sodium 140 mmol/L (137-145)
[2021-08-21] MEDS: PANTOPRAZOLE 40 MG/10 ML VIAL IVP SCH (08:43)
[2021-08-21] MEDS: METOPROLOL SUCCINATE (ER) 100 MG TAB.ER.24H PO SCH (08:44)
[2021-08-21] MEDS: lisinopriL 20 MG TAB PO SCH (08:44)
[2021-08-21] MEDS: amLODIPine 5 MG TAB PO SCH (08:44)
[2021-08-21] MEDS: hydroCHLOROthiazide 25 MG TAB PO SCH (08:44)
[2021-08-21] MEDS ORDERED: PEG 3350-NA SULF,BICARB,CL/KCL 4,000 ML BOTTLE PO ONE (09:00)
[2021-08-21 11:49] LABS: Glucose,Whole Blood 221 mg/dL (75-99)
--- NOTE | 2021-08-21 12:33 | P.PN ---
Subjective Progress Note Date: 08/21/21 The patient is a 76-year-old female with a PMH of hypertension, diabetes, hyperlipidemia, and dementia presented to the emergency room with complaints of shortness of breath. History was obtained from the via telephone. The patient is a very poor historian due to underlying dementia. reports that they were out for dinner when he noticed that the patient appeared to be more short of breath than usual. They subsequently brought her to the emergency room. The also reports that over the past 24 hours, the patient has had some bright red blood in her stools, which is unusual for her. The patient herself however denied any active complaints at the time of interview, although he is an unreliable historian due to her significant dementia. Chest x-ray in the emergency room was unremarkable with EKG showing sinus rhythm at 74 bpm with T-wave inversion in leads V1 to V3. Laboratory evaluation was remarkable for hemoglobin of 5.8 down from 11.7 in 2019. Troponin was less than 0.012, with glucose 236. 08/20: Patient is seen this morning in the emergency center waiting from bed on the [facility] floor. Her nurse states that she has not had any bloody stools today but did have some yesterday. She is status post transfusion 1 unit of packed RBC and repeat blood work is pending. Patient denies having any nausea or vomiting. Patient's been afebrile, heart rate in the 60s, blood pressure 118/64, pulse ox 97% on room air. Capillary blood glucose 167. Patient to be seen today by general surgery and anticipate EGD and possible colonoscopy. 08/21: Patient is seen today on the cardiac stepdown unit. Repeat hemoglobin and she is status post transfusion of 2 units of packed RBCs. Capillary blood glucose running between 134 and 221. Patient is refusing insulin so we will start the patient on Tradjenta. Patient has been seen by general surgery and is scheduled for EGD and colonoscopy tomorrow. Review Of Systems: Constitutional: No fever, no chills, no night sweats. No weight change. No weakness, fatigue or lethargy. No daytime sleepiness. EENT: No headache. No blurred vision or double vision, no loss of vision. No loss of Hearing, no ringing in the ears, no dizziness. No nasal drainage or congestion. No epistaxis. No sore throat. Lungs: No shortness of breath, cough, no sputum production. No wheezing. Cardiovascular: No chest pain, no lower extremity edema. No palpitations. No paroxysmal nocturnal dyspnea. No orthopnea. No lightheadedness or dizziness. No syncopal episodes. Abdominal: No abdominal pain. No nausea, vomiting. No diarrhea. No constipation. Reported bloody or tarry stools reported loss of appetite. Genitourinary: No dysuria, increased frequency, urgency. No urinary retention. Musculoskeletal: No myalgias. No muscle weakness, no gait dysfunction, no frequent falls. No back pain. No neck pain. Integumentary: No wounds, no lesions. No rash or pruritus. No unusual bruising. No change in hair or nails. Neurologic: No aphasia. No facial droop. Chronic change in mentation due to underlying dementia. No head injury. No headache. No paralysis. No paresthesia. Psychiatric: No depression. No anxiety. No mood swings. Endocrine: No abnormal blood sugars. No weight change. No excessive sweating or thirst. No cold intolerance. Physical examination: General: This is a 76-year-old female. She is sitting on the edge of her bed and appears to be comfortable in no acute distress. Derm: no unusual rashes/lesions no unusual ecchymoses, warm, dry Head: atraumatic, normocephalic, symmetric Eyes: EOMI, no lid lag, anicteric sclera, pupils equal round reactive to light ENT: Nose and ears atraumatic, no thrush, no pharyngeal erythema Neck: No thyromegaly, no cervical lymphadenopathy, trachea midline, supple Mouth: no lip lesion, mucus membranes moist Cardiovascular: S1S2 reg, no murmur, positive posterior tibial pulse bilateral, no edema, capillary refill less than 2 seconds Lungs: CTA bilateral, no rhonchi, no rales , no accessory muscle use Abdominal: soft, nontender to palpation, no guarding, no appreciable organomegaly, normal bowel sounds Ext: no gross muscle atrophy, muscle strength 5 out of 5 in all 4 extremities grossly, no contractures Neuro: CN II-XI grossly intact, light touch intact all 4 extremities Psych: Alert, oriented only to self, not oriented to place or time Assessment/plan Acute blood loss anemia secondary to acute GI bleeding - status post transfusion of 2 unit of packed RBCs -Surgery consulted for EGD and colonoscopy scheduled for 08/22 -IV fluids -Continue with IV Protonix -Monitor CBC Hypertension. Continue lisinopril 40 mg daily, Toprol-XL 100 mg daily, amlodipine 5 mg daily. Hyperlipidemia. Continue atorvastatin 80 mg at bedtime. Diabetes mellitus type 2. Continue NovoLog scale before meals and at bedtime. A1c 7.2. DVT prophylaxis -IPCDs CODE STATUS: Full Code DISCHARGE PLAN Home most likely Impression and plan of care have been directed as dictated by the signing physician. Desi Holden nurse practitioner acting as scribe for signing physician. Objective - Vital Signs Vital signs: Vital Signs Temp 98.1 F 08/21/21 07:46 Pulse 61 08/21/21 08:00 Resp 18 08/21/21 08:00 BP 139/71 08/21/21 07:46 Pulse Ox 99 08/21/21 07:46 Intake & Output 08/20/21 08/21/21 08/21/21 18:59 06:59 18:59 Intake Total 310 240 Output Total 200 Balance 310 240 -200 Weight 83.007 kg Intake: Oral 240 Blood Product 310 Rc As-1 Unit 310 [id number] Output: Urine 200 Other: Voiding Method Toilet # Voids 1 # Bowel Movements 1 - Labs CBC & Chem 7: 08/21/21 07:41 08/21/21 07:41 Labs: Abnormal Lab Results - Last 24 Hours (Table) 08/19/21 08/20/21 08/20/21 Range/Units 23:25 07:15 14:04 RBC (3.80-5.40) m/uL Hgb (11.4-16.0) gm/dL Hct (34.0-46.0) % RDW (11.5-15.5) % Chloride (98-107) mmol/L Glucose (74-99) mg/dL POC Glucose (mg/dL) 137 H (75-99) mg/dL Hemoglobin A1c 7.2 H (0.0-6.0) % Crossmatch See Detail 08/20/21 08/20/21 08/20/21 Range/Units 16:02 18:29 20:50 RBC 2.57 L (3.80-5.40) m/uL Hgb 7.9 L (11.4-16.0) gm/dL Hct 24.3 L (34.0-46.0) % RDW 16.5 H (11.5-15.5) % Chloride (98-107) mmol/L Glucose (74-99) mg/dL POC Glucose (mg/dL) 192 H 176 H (75-99) mg/dL Hemoglobin A1c (0.0-6.0) % Crossmatch 08/21/21 08/21/21 08/21/21 Range/Units 06:19 07:41 07:41 RBC 2.83 L (3.80-5.40) m/uL Hgb 8.9 L (11.4-16.0) gm/dL Hct 27.0 L (34.0-46.0) % RDW 16.8 H (11.5-15.5) % Chloride 108 H (98-107) mmol/L Glucose 143 H (74-99) mg/dL POC Glucose (mg/dL) 134 H (75-99) mg/dL Hemoglobin A1c (0.0-6.0) % Crossmatch
--- NOTE | 2021-08-21 12:45 | P.PN ---
Subjective Progress Note Date: 08/21/21 CHIEF COMPLAINT: Acute GI bleed HISTORY OF PRESENT ILLNESS: Patient lying in bed comfortably. Denies any abdominal pain. Per nursing staff patient has had no further bleeding reported. Hemoglobin has trended up from 7.9-8.9. Patient did receive a total of 2 units of blood. PHYSICAL EXAM: VITAL SIGNS: Reviewed. GENERAL: Well-developed in no acute distress. HEENT: No sclera icterus. Extraocular movements grossly intact. Moist buccal mucosa. Head is atraumatic, normocephalic. ABDOMEN: Soft. Nondistended. Nontender. NEUROLOGIC: Pleasantly confused ASSESSMENT: 1. Acute GI bleed 2. Acute blood loss anemia secondary to GI bleeding PLAN: -Patient scheduled for EGD and colonoscopy tomorrow, 08/22/2021 -Start GoLYTELY prep -Clear liquid diet today -Nothing by mouth after midnight -Continue PPI -Continue monitor for any signs or symptoms of bleeding. -Continue monitor hemoglobin Physician Transportation Driver note has been reviewed by physician. Signing provider agrees with the documented findings, assessment, and plan of care. Objective - Vital Signs Vital signs: Vital Signs Temp 98.1 F 08/21/21 07:46 Pulse 61 08/21/21 08:00 Resp 18 08/21/21 08:00 BP 139/71 08/21/21 07:46 Pulse Ox 99 08/21/21 07:46 Intake & Output 08/20/21 08/21/21 08/21/21 18:59 06:59 18:59 Intake Total 310 240 Output Total 200 Balance 310 240 -200 Weight 83.007 kg Intake: Oral 240 Blood Product 310 Rc As-1 Unit 310 [id number] Output: Urine 200 Other: Voiding Method Toilet # Voids 1 # Bowel Movements 1 - Labs CBC & Chem 7: 08/21/21 07:41 08/21/21 07:41 Labs: Abnormal Lab Results - Last 24 Hours (Table) 08/19/21 08/20/21 08/20/21 Range/Units 23:25 14:04 16:02 RBC 2.57 L (3.80-5.40) m/uL Hgb 7.9 L (11.4-16.0) gm/dL Hct 24.3 L (34.0-46.0) % RDW 16.5 H (11.5-15.5) % Chloride (98-107) mmol/L Glucose (74-99) mg/dL POC Glucose (mg/dL) 137 H (75-99) mg/dL Crossmatch See Detail 08/20/21 08/20/21 08/21/21 Range/Units 18:29 20:50 06:19 RBC (3.80-5.40) m/uL Hgb (11.4-16.0) gm/dL Hct (34.0-46.0) % RDW (11.5-15.5) % Chloride (98-107) mmol/L Glucose (74-99) mg/dL POC Glucose (mg/dL) 192 H 176 H 134 H (75-99) mg/dL Crossmatch 08/21/21 08/21/21 08/21/21 Range/Units 07:41 07:41 11:47 RBC 2.83 L (3.80-5.40) m/uL Hgb 8.9 L (11.4-16.0) gm/dL Hct 27.0 L (34.0-46.0) % RDW 16.8 H (11.5-15.5) % Chloride 108 H (98-107) mmol/L Glucose 143 H (74-99) mg/dL POC Glucose (mg/dL) 221 H (75-99) mg/dL Crossmatch
[2021-08-21 16:49] LABS: Glucose,Whole Blood 138 mg/dL (75-99)
[2021-08-21] MEDS: LINAGLIPTIN 5 MG TABLET PO SCH (16:56)
[2021-08-21 20:20] LABS: Glucose,Whole Blood 152 mg/dL (75-99)
[2021-08-21] MEDS: DONEPEZIL 10 MG TAB PO SCH (20:41)
[2021-08-21] MEDS: ATORVASTATIN 80 MG TAB PO SCH (20:41)
[2021-08-22 04:24] LABS: Anisocytosis Slight; HCT 25.7 % (34.0-46.0); HGB 8.4 gm/dL (11.4-16.0); Hypochromasia Slight; MCH 31.2 pg (25.0-35.0); MCHC 32.6 g/dL (31.0-37.0); MCV 95.6 fL (80.0-100.0); Macrocytosis Slight; Mean Platelet Volume 7.8; Platelet Count 232 k/uL (150-450); RBC 2.69 m/uL (3.80-5.40); RDW 17.2 % (11.5-15.5); WBC 4.8 k/uL (3.8-10.6)
[2021-08-22 04:40] LABS: African American GFR (CKD) >90 (>60 ml/min/1.73 sqM); Anion Gap 4 mmol/L; Blood Urea Nitrogen 8 mg/dL (7-17); Calcium 8.9 mg/dL (8.4-10.2); Carbon Dioxide 26 mmol/L (22-30); Chloride 109 mmol/L (98-107); Glucose 119 mg/dL (74-99); Non-African American GFR(CKD) 83 (>60 ml/min/1.73 sqM); Potassium 3.8 mmol/L (3.5-5.1); Sodium 139 mmol/L (137-145)
[2021-08-22 06:09] LABS: Glucose,Whole Blood 127 mg/dL (75-99)
[2021-08-22] MEDS: INSULIN ASPART (NovoLOG) 100 UNIT/ML VIAL SQ SCH ×3 (06:14→17:02)
[2021-08-22 08:23] VITALS: TEMP 98.6
[2021-08-22] MEDS: lisinopriL 20 MG TAB PO SCH (09:48)
[2021-08-22] MEDS: hydroCHLOROthiazide 25 MG TAB PO SCH (09:49)
[2021-08-22] MEDS: PANTOPRAZOLE 40 MG/10 ML VIAL IVP SCH (09:49)
[2021-08-22] MEDS: amLODIPine 5 MG TAB PO SCH (09:49)
[2021-08-22] MEDS: METOPROLOL SUCCINATE (ER) 100 MG TAB.ER.24H PO SCH (09:49)
[2021-08-22] MEDS ORDERED: PROPOFOL 10 MG/ML 20 ML VIAL IV ONE (11:35)
[2021-08-22] MEDS ORDERED: LIDOCAINE 2% INJ 20 MG/ML (2 ML VIAL) ONE (11:35)
[2021-08-22] MEDS ORDERED: IV FLUID CONTINUATION 1,000 ML IV ONE (11:35)
--- NOTE | 2021-08-22 12:02 | P.OP ---
Date of Procedure: 08/22/21 Preoperative Diagnosis: GI bleed Postoperative Diagnosis: Antral gastritis Internal and external hemorrhoids Diverticulosis Procedure(s) Performed: Colonoscopy Anesthesia: MAC Surgeon: Bobby Mendoza Pathology: other (Antral) Condition: stable Disposition: PACU Description of Procedure: The patient's placed on the endoscopy table in the lateral position. She received IV sedation. The gastro-/oropharynx passed in the esophagus into the stomach. The scope was then placed through the pylorus. The first and second portion of the duodenum appeared normal. Scope was then brought back the antrum this. Mildly inflamed. A biopsies was performed. Scope was retroflexed and remainder of the stomach appeared normal. The GE junction was at 40 cm. The distal esophagus appeared normal. The proximal esophagus appeared normal. Scope withdrawn for patient. Next digital rectal exam was performed which revealed significant external hemorrhoids. The scope was then placed patient anus and passed throughout the colon. The scope was positioned into the sigmoid colon. The patient had difficulty retaining air in the colon. The colon cannot be insufflated well. At this point scope withdrawn. There were significant diverticular changes feedings seen. Scope was brought back the rectum this appeared normal. Scope withdrawn for patient. Presumed patient's bleeding from external hemorrhoids or diverticular disease.
[2021-08-22 12:27] LABS: Glucose,Whole Blood 155 mg/dL (75-99)
[2021-08-22] MEDS: LINAGLIPTIN 5 MG TABLET PO SCH (14:25)
--- NOTE | 2021-08-22 14:46 | P.DS ---
Providers Date of admission: 08/20/21 00:00 Expected date of discharge: 08/22/21 Attending physician: Tolu Shankar Consults: 08/19/21 23:31 Consult Physician Routine Consulting Provider: Bobby Mendoza Consult Reason/Comments: kower gi hemorrhage Do you want consulting provider notified?: Yes Primary care physician: [facility] [place] Course: The patient is a 76-year-old female with a PMH of hypertension, diabetes, hyperlipidemia, and dementia presented to the emergency room with complaints of shortness of breath. History was obtained from the via telephone. The patient is a very poor historian due to underlying dementia. reports that they were out for dinner when he noticed that the patient appeared to be more short of breath than usual. They subsequently brought her to the emergency room. The also reports that over the past 24 hours, the patient has had some bright red blood in her stools, which is unusual for her. The patient herself however denied any active complaints at the time of interview, although he is an unreliable historian due to her significant dementia. Chest x-ray in the emergency room was unremarkable with EKG showing sinus rhythm at 74 bpm with T-wave inversion in leads V1 to V3. Laboratory evaluation was remarkable for hemoglobin of 5.8 down from 11.7 in 2019. Troponin was less than 0.012, with glucose 236. 08/20: Patient is seen this morning in the emergency center waiting from bed on the [facility] floor. Her nurse states that she has not had any bloody stools today but did have some yesterday. She is status post transfusion 1 unit of packed RBC and repeat blood work is pending. Patient denies having any nausea or vomiting. Patient's been afebrile, heart rate in the 60s, blood pressure 118/64, pulse ox 97% on room air. Capillary blood glucose 167. Patient to be seen today by general surgery and anticipate EGD and possible colonoscopy. 08/21: Patient is seen today on the cardiac stepdown unit. Repeat hemoglobin and she is status post transfusion of 2 units of packed RBCs. Capillary blood glucose running between 134 and 221. Patient is refusing insulin so we will start the patient on Tradjenta. Patient has been seen by general surgery and is scheduled for EGD and colonoscopy tomorrow. 08/22: Patient underwent EGD and colonoscopy today that found antral gastritis, internal and external hemorrhoids and diverticulosis. Presumed patient's bleeding from external hemorrhoids or diverticular disease. Hemoglobin is stable at 8.4. No active GI bleeding. Patient will be discharged home today in stable condition. DISCHARGE DIAGNOSES Acute blood loss anemia secondary to acute GI bleeding, possible external hemorrhoids or diverticulosis. Hypertension. Hyperlipidemia. Diabetes mellitus type 2. DISCHARGE PLAN Home Greater than 35 minutes was utilized and coordinating patient's discharge. Impression and plan of care have been directed as dictated by the signing physician. Desi Holden nurse practitioner acting as scribe for signing physician. Patient Condition at Discharge: Serious Plan - Discharge Summary Discharge Rx Participant: No New Discharge Prescriptions: New Hydrocortisone Suppository [Anusol-Hc] 25 mg RECTAL BID #30 suppositor Continue Aspirin 81 mg PO DAILY chew Atorvastatin [Lipitor] 80 mg PO HS tab Vit C/E/Zn/Coppr/Lutein/Zeaxan [Preservision Areds 2 Softgel] 1 cap PO BID Potassium Chloride ER [K-Dur 20] 20 meq PO DAILY Ezetimibe [Zetia] 10 mg PO HS Donepezil [Aricept] 10 mg PO HS Metoprolol Succinate (ER) [Toprol XL] 100 mg PO DAILY lisinopriL 40 mg PO DAILY hydroCHLOROthiazide [Hydrodiuril] 25 mg PO DAILY Ergocalciferol (Vitamin D2) [Vitamin D2] 50,000 unit PO WE Ferrous Sulfate [Iron (65 MG Elemental)] 325 mg PO BID metFORMIN HCL 500 mg PO BID Omeprazole [PriLOSEC] 20 mg PO DAILY amLODIPine [Norvasc] 5 mg PO DAILY Discharge Medication List Aspirin 81 mg PO DAILY chew 08/03/14 [Rx] Atorvastatin [Lipitor] 80 mg PO HS tab 08/03/14 [Rx] Donepezil [Aricept] 10 mg PO HS 05/17/18 [History] Ergocalciferol (Vitamin D2) [Vitamin D2] 50,000 unit PO WE 05/17/18 [History] Ezetimibe [Zetia] 10 mg PO HS 05/17/18 [History] Metoprolol Succinate (ER) [Toprol XL] 100 mg PO DAILY 05/17/18 [History] Potassium Chloride ER [K-Dur 20] 20 meq PO DAILY 05/17/18 [History] Vit C/E/Zn/Coppr/Lutein/Zeaxan [Preservision Areds 2 Softgel] 1 cap PO BID 05/17/18 [History] hydroCHLOROthiazide [Hydrodiuril] 25 mg PO DAILY 05/17/18 [History] lisinopriL 40 mg PO DAILY 05/17/18 [History] Ferrous Sulfate [Iron (65 MG Elemental)] 325 mg PO BID 08/19/21 [History] Omeprazole [PriLOSEC] 20 mg PO DAILY 08/19/21 [History] amLODIPine [Norvasc] 5 mg PO DAILY 08/19/21 [History] metFORMIN HCL 500 mg PO BID 08/19/21 [History] Hydrocortisone Suppository [Anusol-Hc] 25 mg RECTAL BID #30 suppositor 08/22/21 [Rx] Follow up Appointment(s)/Referral(s): Alisson Calzada [Primary Care Provider] - 1 Week Ambulatory/Diagnostic Orders: Complete Blood Count w/diff [LAB.AMB] Location: None Selected
[2021-08-22 15:33] VITALS: BP 148/80; PULSE 63; RESP 17
[2021-08-22 16:49] LABS: Glucose,Whole Blood 140 mg/dL (75-99)
== END 2021-08-22 18:04 | disposition home or self-care (01) ==
LOC: EC 20:24 → 3SCARD 08-20 → INTOOBSV 08-20 → 3SCARD 08-20 13:13 → UNDODISIN 08-22 18:04
PROVIDERS: ADMIT Internal Medicine Geriatric Medicine; ATTEND Internal Medicine Geriatric Medicine
PROC: 30233N1 Transfusion of Nonautologous Red Blood Cells into Peripheral Vein, Percutaneous Approach (ICD-10-PCS; 2021-08-20)
PROC: 0DB78ZX Excision of Stomach, Pylorus, Via Natural or Artificial Opening Endoscopic, Diagnostic (ICD-10-PCS; principal; 2021-08-22 11:20)
PROC: 0DJD8ZZ Inspection of Lower Intestinal Tract, Via Natural or Artificial Opening Endoscopic (ICD-10-PCS; 2021-08-22 11:20)
DX: K62.5 Hemorrhage of anus and rectum (principal); D62 Acute posthemorrhagic anemia; K57.30 Diverticulosis of large intestine without perforation or abscess without bleeding; K29.50 Unspecified chronic gastritis without bleeding; K64.8 Other hemorrhoids; K64.4 Residual hemorrhoidal skin tags; E11.9 Type 2 diabetes mellitus without complications; F03.90 Unspecified dementia, unspecified severity, without behavioral disturbance, psychotic disturbance, mood disturbance, and anxiety; E78.5 Hyperlipidemia, unspecified; I25.10 Atherosclerotic heart disease of native coronary artery without angina pectoris; I11.9 Hypertensive heart disease without heart failure; E07.9 Disorder of thyroid, unspecified; L71.9 Rosacea, unspecified; I25.2 Old myocardial infarction; Z87.19 Personal history of other diseases of the digestive system; Z79.82 Long term (current) use of aspirin; Z79.84 Long term (current) use of oral hypoglycemic drugs; Z79.899 Other long term (current) drug therapy; Z98.41 Cataract extraction status, right eye; Z98.42 Cataract extraction status, left eye; Z95.1 Presence of aortocoronary bypass graft; Z95.5 Presence of coronary angioplasty implant and graft; Z90.710 Acquired absence of both cervix and uterus; Z86.011 Personal history of benign neoplasm of the brain; Z82.49 Family history of ischemic heart disease and other diseases of the circulatory system; Z83.49 Family history of other endocrine, nutritional and metabolic diseases; Z82.5 Family history of asthma and other chronic lower respiratory diseases; Z81.2 Family history of tobacco abuse and dependence
CPT/HCPCS: 96376 ×3; 36430; 96374; 99285 ×2; 36415; 93005 ×2; 97162; 86900; 86901; 85379; 88305; 80053; 80048 ×3; 84484; 85025 ×2; 85027 ×3; 85610; 85730; 86850; 86920 ×2; 83036; 71046; 45378; 43239; G0378 ×3; P9016; J2704; C9113 ×3; J2001

== ENCOUNTER → 2021-08-29 | Outpatient (CLI) | payer MEDICARE ==
--- NOTE | 2021-08-29 18:45 | SFUN ---
SLEEP CENTER FOLLOW UP NOTE DATE OF SERVICE: 08/29/2021 This 76-year-old lady has been followed in Sleep Center for treatment of obstructive sleep apnea-hypopnea syndrome. The patient continues to use her CPAP equipment every night, getting her supplies on time, changing her air filter. No snoring with the machine. [place] Sleepiness Scale is slightly increased to 11. I checked her CPAP unit. Pressure is 7 cm of water. Usage is /30 nights and /30 nights for more than 4 hours, average 7.7 hours per night, which is good compliance. Apnea-hypopnea index is only 0.5, which is absolutely perfect. MEDICATIONS: 1. Lisinopril 40 mg once a day. 2. Aspirin 81 mg once a day. 3. Hydrochlorothiazide 25 mg once a day. 4. Metoprolol 100 mg once a day. 5. Norvasc 2.5 mg once a day. 6. Amlodipine 5 mg once a day. 7. 325 mg twice a day. 8. Omeprazole 20 mg once a day. 9. Metformin 500 mg twice a day. 10.Atorvastatin 80 mg once a day. 11.Donepezil 10 mg once a day. PHYSICAL EXAMINATION: GENERAL: Pleasant patient in no distress. VITAL SIGNS: BP 120/68, HR 67, RR 16, height 5 feet 4 inches, weight 181.4, body mass index 31, temperature 98.1, oxygen saturation at room air 96%. HEENT: PERRLA, EOMI, evaluation of oropharynx showed tongue protrudes midline. Low position of soft palate; Mallampati III. NECK: Supple, no JVD. Thyroid is not palpable. LUNGS: Clear to percussion and to auscultation. Good air exchange. No wheezing or rhonchi. HEART: S1, S2 regular. No murmurs, gallops, or rubs. ABDOMEN: Soft and nontender. Bowel sounds are present. No organomegaly appreciated. EXTREMITIES: No clubbing or cyanosis. RIVETER HELPER: Awake, alert, and oriented X3. Cranial nerves 2 to 7 intact. There is no fasciculation or atrophy. noted. No focal deficits observed. IMPRESSION: 1. Obstructive sleep apnea-hypopnea syndrome. Patient demonstrated great compliance with treatment, benefitting from treatment. 2. Hypertension. 3. Coronary artery disease, status post coronary artery bypass grafting in 2014. 4. Hyperlipidemia. 5. Status post total hysterectomy in 1999 for ovarian tumor. 6. Status post brain surgery for tumor in 2002. 7. Status post bilateral cataract surgery in 2007. PLAN: 1. Patient will continue to use PAP equipment every night for the whole night. 2. Sleep hygiene with regular time in bed for at least 7-1/2 to 8 hours. 3. Precautions related to driving. No driving if feeling sleepiness. 4. I will maintain all necessary prescription for PAP supplies including mask, tube, filters. 5. Watching weight. 6. Follow-up visit in 6 months or earlier if patient has any problems. Thank you very much for allowing me to participate in the management of your patient. Sincerely, Heber Guzman MD, PhD, FAASM Diplomat of [employer] Sleep Medicine Board of [employer] Medicine Grey Roll Man of [facility] [place] MMODL / LUCIEN: [id number] /
== END | disposition home or self-care (01) ==
LOC: SLEEP 15:27
PROVIDERS: ATTEND Internal Medicine
DX: G47.33 Obstructive sleep apnea (adult) (pediatric) (principal); I10 Essential (primary) hypertension; I25.10 Atherosclerotic heart disease of native coronary artery without angina pectoris; E78.5 Hyperlipidemia, unspecified; Z90.79 Acquired absence of other genital organ(s); Z98.890 Other specified postprocedural states

== ENCOUNTER → 2022-03-13 | Outpatient (CLI) | payer MEDICARE ==
--- NOTE | 2022-03-13 12:12 | P.PN ---
Subjective DATE: 03/13/2022 FOLLOW UP VISIT. Patient with obstructive sleep apnea hypopnea syndrome return to sleep center for follow-up visit. Information from previous visit have been reviewed. Patient is using PAP equipment every night for the whole night, getting PAP supplies in time. The patient does not have significant problems with the mask, PAP unit and humidification. [place] sleepiness scale is 4. I checked information from PAP unit. PAP unit pressure 7 cm H2O. Usage is 100 % for more then 4 hours, average 7.4 hours per night. Leak is 19 l/m, which is in acceptable range. Apnea Hypopnea Index is 0.7, which is normal. MEDICATIONS:1. Hydrochlorothiazide 25 mg once a day 2. Metoprolol 100 mg once a day 3. Norvasc 2.5 mg once a day 4. Amlodipine 2.5 mg once a day 5. Omeprazole 20 mg once a day 6. Ferrous sulfate 325 mg once a day During physical exam: GENERAL: A pleasant patient without any distress. VITAL SIGNS: BP 174/70, HR 57, RR 18 , weight 174.2, temperature 96.3, oxygen saturation at room air 100 % . HEENT: PERRLA, EOMI.low position of soft palate, Mallapati 3 . NECK: Supple. No JVD. LUNGS: Clear to percussion and to auscultation. Good air exchange. No wheezing or rhonchi. HEART: S1, S2 regular. ABDOMEN: Soft and nontender.[] EXTREMITIES: No clubbing or cyanosis. LABORER GOLF COURSE: Awake, alert, and oriented x3. No focal deficit. Impressions: 1. Obstructive sleep apnea-hypopnea syndrome. Patient demonstrated great compliance with treatment, benefiting from treatment. 2. Hypertension. 3. Coronary artery disease, status post CABG and later stent insertions. 4. Hyperlipidemia. 5. Status post surgery for brain tumor in 2002. 6. Status post total hysterectomy in 2003 over in tumor. 7. Status post bilateral cataract surgery. Plan: 1. Continue using PAP equipment every night for the whole night. 2. To change air filter at least 1-2 times per month. 3. PAP unit should stay lower then position of the head. 4. Advised patient to remove all remaining water from humidifier canister daily and make it dry after each usage. Refill canister with fresh distilled water before each usage. 5. Sleep hygiene with regular time in bed for at least 8 hours. 6. Precautions related to driving. No driving if feel any sleepiness. 7. I will maintain prescription for PAP supplies including mask, tube, filters. 8. Follow up visit in 6 months or earlier if patient has any problems. 9. Watching weight. Thank you very much for allowing me to participate in the management of your patient. Heber Guzman MD, PhD, FAASM. Diplomat of [employer], Sleep Medicine Board by [employer] Drop Shipment Clerk of [facility] [place]
== END ==
LOC: SLEEP 11:18
PROVIDERS: ATTEND Internal Medicine
DX: G47.33 Obstructive sleep apnea (adult) (pediatric) (principal); Z99.89 Dependence on other enabling machines and devices; I10 Essential (primary) hypertension; E78.5 Hyperlipidemia, unspecified; Z98.890 Other specified postprocedural states; Z95.1 Presence of aortocoronary bypass graft; Z90.710 Acquired absence of both cervix and uterus; Z79.899 Other long term (current) drug therapy
CPT/HCPCS: 99212

== ENCOUNTER → 2022-09-18 | Outpatient (CLI) | payer MEDICARE ==
--- NOTE | 2022-09-18 13:38 | P.PN ---
Subjective DATE: 09/18/2022 FOLLOW UP VISIT. Patient with obstructive sleep apnea hypopnea syndrome return to sleep center for follow-up visit. Information from previous visit have been reviewed. Patient is using PAP equipment every night for the whole night, getting PAP supplies in time. The patient does not have significant problems with the mask, PAP unit and humidification. [place] sleepiness scale is 7, which is normal. I checked information from PAP unit. PAP unit pressure 7 cm H2O. Usage is 100 % for more then 4 hours, average 7.6 hours per night. Leak is 24 l/m, which is in acceptable range. Apnea Hypopnea Index is 0.3, which is normal. MEDICATIONS:1. Atorvastatin 40 mg once a day 2. Ezetimibe 10 mg once a day 3. Hydrochlorothiazide 25 mg once a day 4. Norvasc 2.5 mg once a day 5. Amlodipine 2.5 mg once a day 6. Omeprazole 20 mg once a day 7. Ferrous sulfate 325 mg During physical exam: GENERAL: A pleasant patient without any distress. VITAL SIGNS: BP 172/88, HR 62, RR 14, weight 171.6, temperature 98.2, oxygen saturation at room air 99 % . HEENT: PERRLA, EOMI.low position of soft palate, Mallapati 3. NECK: Supple. No JVD. LUNGS: Clear to percussion and to auscultation. Good air exchange. No wheezing or rhonchi. HEART: S1, S2 regular. ABDOMEN: Soft and nontender. EXTREMITIES: No clubbing or cyanosis. CORD SPLICER: Awake, alert, and oriented x3. No focal deficit. Impressions: 1. Obstructive sleep apnea-hypopnea syndrome. Patient demonstrated great compliance with treatment, benefiting from treatment. 2. Coronary artery disease, status post CABG and stent insertion. 3. Hypertension. 4. Hyperlipidemia. 5. Status post brain tumor surgery in 2002. 6. Status post total hysterectomy in 2003. 7. Status post bilateral cataract surgery. Plan: 1. Continue using PAP equipment every night for the whole night. 2. To change air filter at least 1-2 times per month. 3. PAP unit should stay lower then position of the head. 4. Advised patient to remove all remaining water from humidifier canister daily and make it dry after each usage. Refill canister with fresh distilled water before each usage. 5. Sleep hygiene with regular time in bed for at least 8 hours. 6. Precautions related to driving. No driving if feel any sleepiness. 7. I will maintain prescription for PAP supplies including mask, tube, filters. 8. Watching weight. 9. Follow up visit in 6 months or earlier if patient has any problems. Thank you very much for allowing me to participate in the management of your patient. Heber Guzman MD, PhD, FAASM. Diplomat of [employer], Sleep Medicine Board by [employer] Motor Vehicle Representative of [facility] [place]
== END ==
LOC: SLEEP 13:10
PROVIDERS: ATTEND Internal Medicine
DX: G47.33 Obstructive sleep apnea (adult) (pediatric) (principal); I25.10 Atherosclerotic heart disease of native coronary artery without angina pectoris; Z95.1 Presence of aortocoronary bypass graft; I10 Essential (primary) hypertension; E78.5 Hyperlipidemia, unspecified; Z90.710 Acquired absence of both cervix and uterus; Z98.890 Other specified postprocedural states; Z79.899 Other long term (current) drug therapy; Z99.89 Dependence on other enabling machines and devices
CPT/HCPCS: 99212

== ENCOUNTER → 2023-04-01 | Outpatient (CLI) | payer MEDICARE | LOC: 3 N SLEEP 13:15 | PROVIDERS: ATTEND Internal Medicine | DX: G47.33 Obstructive sleep apnea (adult) (pediatric) (principal) | CPT/HCPCS: 99212 ==

== ENCOUNTER → 2023-09-03 | Outpatient (CLI) | payer MEDICARE ==
[2023-09-03 13:40] VITALS: BP 157/59; PULSE 60; RESP 16; TEMP 97.6
--- NOTE | 2023-09-03 14:01 | P.PN ---
Subjective DATE: 09/03/2023 FOLLOW UP VISIT. Patient with obstructive sleep apnea hypopnea syndrome return to sleep center for follow-up visit. This is first visit after patient received new CPAP unit. Information from previous visit have been reviewed. Patient is using PAP equipment every night for the whole night, getting PAP supplies in time. The patient does not have significant problems with the mask, PAP unit and humidification. [place] sleepiness scale is 3, which is normal. I checked information from PAP unit. PAP unit pressure 5-10, average 9.9 cm H2O. Usage is 100% for more then 4 hours, average 7 hours per night. Leak is 17 l/m, which is in acceptable range. Apnea Hypopnea Index is 0.4, which is normal. MEDICATIONS:1. Lisinopril 40 mg once a day 2. Aspirin 81 mg once a day 3. Hydrochlorothiazide 25 mg once a day 4. Metoprolol 100 mg once a day 5. Norvasc 2.5 mg once a day 6. Amlodipine 2.5 mg once a day 7. Omeprazole 20 mg once a day 8. Ferrous sulfate 325 mg once a day During physical exam: GENERAL: A pleasant patient without any distress. VITAL SIGNS: Please see below. HEENT: PERRLA, EOMI.low position of soft palate, Mallapati 3 . NECK: Supple. No JVD. LUNGS: Clear to percussion and to auscultation. Good air exchange. No wheezing or rhonchi. HEART: S1, S2 regular. ABDOMEN: Soft and nontender. EXTREMITIES: No clubbing or cyanosis. DIAMOND CLEANER: Awake, alert, and oriented x3. No focal deficit. Impressions: 1. Obstructive sleep apnea-hypopnea syndrome. Patient demonstrated great compliance with treatment, benefiting from treatment. 2. Hypertension. 3. Coronary artery disease status post CABG and stent insertion. 4. Hyperlipidemia. 5. Status post brain tumor surgery in 2002. 6. Status post total hysterectomy in 2003. 7. Status post bilateral cataract surgery. Plan: 1. Continue using PAP equipment every night for the whole night. 2. To change air filter at least 1-2 times per month. 3. PAP unit should stay lower then position of the head. 4. Advised patient to remove all remaining water from humidifier canister daily and make it dry after each usage. Refill canister with fresh distilled water before each usage. 5. Sleep hygiene with regular time in bed for at least 8 hours. 6. Precautions related to driving. No driving if feel any sleepiness. 7. I will maintain prescription for PAP supplies including mask, tube, filters. 8. Follow up visit in 6 months or earlier if patient has any problems. 9. Watching weight. Thank you very much for allowing me to participate in the management of your patient. Heber Guzman MD, PhD, FAASM. Diplomat of [employer] Board [employer] Sleep Medicine, Sleep Medicine Board by [employer] Board of [employer] Medicine Manager Of Drilling of [facility] [place] Objective - Vital Signs Vital signs: Vital Signs Temp 97.6 F 09/03/23 13:28 Pulse 60 09/03/23 13:28 Resp 16 09/03/23 13:28 BP 157/59 09/03/23 13:28 Pulse Ox 98 09/03/23 13:28 FiO2 Intake & Output 09/02/23 09/03/23 09/03/23 18:59 06:59 18:59 Weight 83.007 kg
== END ==
LOC: 3 N SLEEP 13:11
PROVIDERS: ATTEND Internal Medicine
DX: G47.33 Obstructive sleep apnea (adult) (pediatric) (principal); I10 Essential (primary) hypertension; I25.10 Atherosclerotic heart disease of native coronary artery without angina pectoris; E78.5 Hyperlipidemia, unspecified; Z98.890 Other specified postprocedural states; Z98.41 Cataract extraction status, right eye; Z98.42 Cataract extraction status, left eye; Z99.89 Dependence on other enabling machines and devices; Z79.899 Other long term (current) drug therapy; Z90.710 Acquired absence of both cervix and uterus; Z95.1 Presence of aortocoronary bypass graft; Z85.841 Personal history of malignant neoplasm of brain
CPT/HCPCS: 99212

== ENCOUNTER → 2024-04-06 | Outpatient (CLI) | payer MEDICARE ==
[2024-04-06 13:22] VITALS: BP 156/83; PULSE 58; RESP 16; TEMP 97.4
--- NOTE | 2024-04-06 13:49 | P.PROGSL ---
Subjective DATE: 04/06/2024 FOLLOW UP VISIT. Patient with obstructive sleep apnea hypopnea syndrome return to sleep center for follow-up visit. Information from previous visit have been reviewed. Patient is using PAP equipment every night for the whole night, getting PAP supplies in time. The patient does not have significant problems with the mask, PAP unit and humidification. [place] sleepiness scale is 7, which is in normal range. I checked information from PAP unit. PAP unit pressure 5-10, average 9.9 cm H2O. Usage is 100% for more then 4 hours, average 6.9 hours per night. Leak is 25 l/m, which is in acceptable range. Apnea Hypopnea Index is perfect 0.2. MEDICATIONS have been reviewed, please see below. During physical exam: GENERAL: A pleasant patient without any distress. VITAL SIGNS: Please see below, weight is 172 lbs. HEENT: PERRLA, EOMI.low position of soft palate, Mallapati 3. NECK: Supple. No JVD. LUNGS: Clear to percussion and to auscultation. Good air exchange. No wheezing or rhonchi. HEART: S1, S2 regular. ABDOMEN: Soft and nontender.[] EXTREMITIES: No clubbing or cyanosis. CREASING MACHINE OPERATOR: Awake, alert, and oriented x3. No focal deficit. Impressions: 1. Obstructive sleep apnea-hypopnea syndrome. Patient demonstrated great compliance with treatment, benefiting from treatment. 2. Hypertension. 3. Coronary artery disease, status post CABG and stent insertion. 4. Hyperlipidemia. 5. Status post surgical treatment for brain tumor in 2002. 6. Status post bilateral cataract surgery. 7. Status post total hysterectomy in 2003. Plan: 1. Continue using PAP equipment every night for the whole night. 2. Sleep hygiene with regular time in bed for at least 7.5-8 hours 3. PAP unit should stay lower then position of the head. 4. Advised patient to remove all remaining water from humidifier canister daily and make it dry after each usage. Refill canister with fresh distilled water before each usage. 5. Watching weight. 6. Precautions related to driving. No driving if feel any sleepiness. 7. I will maintain prescription for PAP supplies including mask, tube, filters. 8. Follow up visit in 8 months or earlier if patient has any problems. Thank you very much for allowing me to participate in the management of your patient. Heber Guzman MD, PhD, FAASM. Diplomat of [place] [employer] Sleep Medicine, Sleep Medicine Board by [employer] [employer] Medicine Autos Disassembler of [facility] [place] Objective - Vital Signs Vital Signs: Vital Signs Temp 97.4 F L 04/06/24 13:21 Pulse 58 L 04/06/24 13:21 Resp 16 04/06/24 13:21 BP 156/83 04/06/24 13:21 Pulse Ox 100 04/06/24 13:21 FiO2 Intake & Output 04/05/24 04/06/24 04/06/24 18:59 06:59 18:59 Weight 78.018 kg Home Medications: Home Medications Medication Instructions Recorded Confirmed Type Aspirin 81 mg PO DAILY chew 08/03/14 04/06/24 Rx Donepezil [Aricept] 10 mg PO HS 05/17/18 04/06/24 History Ergocalciferol (Vitamin D2) 50,000 unit PO WE 05/17/18 04/06/24 History [Vitamin D2] Ezetimibe [Zetia] 10 mg PO HS 05/17/18 04/06/24 History Metoprolol Succinate (ER) [Toprol 100 mg PO DAILY 05/17/18 04/06/24 History XL] Potassium Chloride ER [K-Dur 20] 20 meq PO DAILY 05/17/18 08/19/21 History Vit C/E/Zn/Coppr/Lutein/Zeaxan 1 cap PO BID 05/17/18 09/03/23 History [Preservision Areds 2 Softgel] hydroCHLOROthiazide [Hydrodiuril] 25 mg PO DAILY 05/17/18 04/06/24 History lisinopriL 40 mg PO DAILY 05/17/18 04/06/24 History Ferrous Sulfate [Iron (65 MG 325 mg PO BID 08/19/21 04/06/24 History Elemental)] Omeprazole [PriLOSEC] 20 mg PO DAILY 08/19/21 04/06/24 History amLODIPine [Norvasc] 5 mg PO DAILY 08/19/21 04/06/24 History metFORMIN HCL 500 mg PO BID 08/19/21 04/06/24 History Hydrocortisone Suppository 25 mg RECTAL BID #30 suppositor 08/22/21 09/03/23 Rx [Anusol-Hc] Atorvastatin [Lipitor] 40 mg PO HS 04/06/24 04/06/24 History
== END ==
LOC: 3 N SLEEP 13:06
PROVIDERS: ATTEND Internal Medicine
DX: G47.33 Obstructive sleep apnea (adult) (pediatric) (principal); I10 Essential (primary) hypertension; I25.10 Atherosclerotic heart disease of native coronary artery without angina pectoris; Z95.1 Presence of aortocoronary bypass graft; E78.5 Hyperlipidemia, unspecified; Z90.710 Acquired absence of both cervix and uterus; Z98.41 Cataract extraction status, right eye; Z98.42 Cataract extraction status, left eye; Z85.841 Personal history of malignant neoplasm of brain; Z99.89 Dependence on other enabling machines and devices
CPT/HCPCS: 99212

== ENCOUNTER → 2024-11-25 | Outpatient (CLI) | payer MEDICARE ==
--- NOTE | 2024-11-25 14:17 | P.PROGSL ---
Subjective DATE: 11/25/2024 FOLLOW UP VISIT. Patient with obstructive sleep apnea hypopnea syndrome return to sleep center for follow-up visit. Information from previous visit have been reviewed. Patient is using PAP equipment every night for the whole night, getting PAP supplies in time. The patient does not have significant problems with the mask, PAP unit and humidification. [place] sleepiness scale is 4, which is normal. I checked information from PAP unit. PAP unit pressure 5-10, average 9.6 cm H2O. Usage is 100% for more then 4 hours, average 7.5 hours per night. Leak is 18 l/m, which is in acceptable range. Apnea Hypopnea Index is 0.3, which is normal. MEDICATIONS: Lisinopril 40 mg once a day, aspirin 81 mg once a day, hydrochlorothiazide 25 mg once a day, metoprolol extended release 100 mg once a day, amlodipine 5 mg once a day, ferrous sulfate 325 mg once a day, omeprazole 20 mg once a day, furosemide 20 mg once a day, metformin 500 mg once a day, Januvia 50 mg once a day, atorvastatin 20 mg once a day. During physical exam: GENERAL: A pleasant patient without any distress. VITAL SIGNS: BP 154/70, HR 52, RR 16, weight 168.2 pounds, BMI 30.2, temperature 98.0, oxygen saturation at room air 99%. HEENT: PERRLA, EOMI.low position of soft palate, Mallapati 3. NECK: Supple. No JVD. LUNGS: Clear to percussion and to auscultation. Good air exchange. No wheezing or rhonchi. HEART: S1, S2 regular. ABDOMEN: Soft and nontender.[] EXTREMITIES: No clubbing or cyanosis. PHOTO PRINTER: Awake, alert, and oriented x3. No focal deficit. Impressions: 1. Obstructive sleep apnea-hypopnea syndrome. Patient demonstrated great compliance with treatment, benefiting from treatment. 2. Hypertension. 3. Coronary artery disease, status post CABG and stent insertion. 4. Hyperlipidemia. 5. Status post surgical treatment for brain tumor in 2002. 6. Status post total hysterectomy. 7. Status post bilateral cataract surgery. Plan: 1. Continue using PAP equipment every night for the whole night. 2. Sleep hygiene with regular time in bed for at least 7.5-8 hours 3. PAP unit should stay lower then position of the head. 4. Advised patient to remove all remaining water from humidifier canister daily and make it dry after each usage. Refill canister with fresh distilled water before each usage. 5. Watching weight. 6. Precautions related to driving. No driving if feel any sleepiness. 7. I will maintain prescription for PAP supplies including mask, tube, filters. 8. Follow up visit in 12 months or earlier if patient has any problems. Thank you very much for allowing me to participate in the management of your patient. Heber Guzman MD, PhD, FAASM. Diplomat of [place] [employer] Sleep Medicine, Sleep Medicine Board by [employer] Plasma Processing Technician of [facility] [place] Objective Home Medications: Home Medications Medication Instructions Recorded Confirmed Type Aspirin 81 mg PO DAILY chew 08/03/14 04/06/24 Rx Donepezil [Aricept] 10 mg PO HS 05/17/18 04/06/24 History Ergocalciferol (Vitamin D2) 50,000 unit PO WE 05/17/18 04/06/24 History [Vitamin D2] Ezetimibe [Zetia] 10 mg PO HS 05/17/18 04/06/24 History Metoprolol Succinate (ER) [Toprol 100 mg PO DAILY 05/17/18 04/06/24 History XL] Potassium Chloride ER [K-Dur 20] 20 meq PO DAILY 05/17/18 08/19/21 History Vit C/E/Zn/Coppr/Lutein/Zeaxan 1 cap PO BID 05/17/18 09/03/23 History [Preservision Areds 2 Softgel] hydroCHLOROthiazide [Hydrodiuril] 25 mg PO DAILY 05/17/18 04/06/24 History lisinopriL 40 mg PO DAILY 05/17/18 04/06/24 History Ferrous Sulfate [Iron (65 MG 325 mg PO BID 08/19/21 04/06/24 History Elemental)] Omeprazole [PriLOSEC] 20 mg PO DAILY 08/19/21 04/06/24 History amLODIPine [Norvasc] 5 mg PO DAILY 08/19/21 04/06/24 History metFORMIN HCL 500 mg PO BID 08/19/21 04/06/24 History Hydrocortisone Suppository 25 mg RECTAL BID #30 suppositor 04/28/22 05/09/24 Rx [Anusol-Hc] Atorvastatin [Lipitor] 40 mg PO HS 04/06/24 04/06/24 History
== END ==
LOC: 3 N SLEEP 13:45
PROVIDERS: ATTEND Internal Medicine
CPT/HCPCS: 99212